=== PATIENT | female | born 2000 | race Caucasian/White ===

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

== ENCOUNTER 2021-07-14 08:06 | Emergency (ER) | payer OTHER ==
--- NOTE | 2021-07-14 08:13 | ERPHSYRPT ---
- History of Present Illness Time Seen by Provider: 07/14/21 08:13 Historian: patient Exam Limitations: no limitations Physician History: This is a 20-year-old white female who has a history of ovarian cyst in the past and has undergone an ovarian cystectomy in the past and presents with generalized abdominal pain with greater amount of pain in bilateral upper quadrants and lower quadrants. Patient states that she started her menstrual period yesterday and the pain began suddenly this morning. She has history of chronic intermittent diarrhea. She also was nauseated this morning. She has not had any abnormal vaginal discharge although she is currently on her m enstrual period she does not have dysuria. She denies flank pain. Patient states that she has vaginal bleeding intermittently between her menstrual periods. 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 Patient denies shortness of breath. Patient states that the upper abdominal pain does go up into her chest bilaterally. She has not had a cough. She denies fever. Patient has a history of migraine headaches, bipolar disorder, depression, borderline personality disorder. Timing/Duration: today Activities at Onset: none Quality: aching Abdominal Pain Onset Location: RUQ, LUQ, RLQ, LLQ, generalized abdomen Pain Radiation: no radiation Severity of Pain-Max: moderate Severity of Pain-Current: mild (To moderate) Modifying Factors: Improves With: nothing Associated Symptoms: diarrhea, nausea Previous symptoms: same symptoms as today, no recent treatment Allergies/Adverse Reactions: duloxetine [From Cymbalta] Allergy (Severe, Verified 07/14/21 08:20) antipsychotic Allergy (Uncoded 08/23/19 15:23) Home Medications: Gabapentin [Neurontin] 100 mg PO DAILY 07/14/21 [History] Hx Tetanus, Diphtheria Vaccination/Date Given: Yes Hx Influenza Vaccination/Date Given: Yes Hx Pneumococcal Vaccination/Date Given: No Travel Risk - International Travel Have you traveled outside of the country in past 3 weeks: No - Coronavirus Screening Are you exhibiting any of the following symptoms?: No Close contact with a COVID-19 positive Pt in past 14-21 Days: No - Review of Systems Constitutional: No Symptoms Eyes: No Symptoms Ears, Nose, & Throat: No Symptoms Respiratory: No Symptoms Cardiac: No Symptoms Abdominal/Gastrointestinal: Abdominal Pain, Nausea, Diarrhea, No Vomiting, No Constipation Genitourinary Symptoms: No Symptoms Musculoskeletal: No Symptoms Skin: No Symptoms Neurological: No Symptoms Psychological: No Symptoms - Past Medical History Pertinent Past Medical History: Yes Neurological History: Migraines ENT History: No Pertinent History Cardiac History: No Pertinent History Respiratory History: No Pertinent History Endocrine Medical History: No Pertinent History Musculoskeletal History: No Pertinent History GI Medical History: No Pertinent History History: No Pertinent History Psycho-Social History: Bipolar, Depression, Other Female Reproductive Disorders: No Pertinent History Other Medical History: borderline personality - Past Surgical History Past Surgical History: No Neuro Surgical History: No Pertinent History Cardiac: No Pertinent History Respiratory: No Pertinent History Gastrointestinal: No Pertinent History Genitourinary: No Pertinent History Musculoskeletal: No Pertinent History Female Surgical History: No Pertinent History - Social History Smoking Status: Never smoker Exposure to second hand smoke: Yes Drug Use: none Patient Lives Alone: No - Nursing Vital Signs Nursing Vital Signs: Initial Vital Signs Temperature 97.8 F 07/14/21 08:08 Pulse Rate 91 H 07/14/21 08:08 Respiratory Rate 20 07/14/21 08:08 Blood Pressure 130/70 07/14/21 08:08 O2 Sat by Pulse Oximetry 99 07/14/21 08:08 Pain Scale Pain Intensity 7 - Physical Exam General Appearance: no apparent distress, alert, anxiety Eye Exam: PERRL/EOMI, eyes nml inspection Ears, Nose, Throat Exam: normal ENT inspection, moist mucous membranes Neck Exam: normal inspection, non-tender, supple, full range of motion Respiratory Exam: normal breath sounds, lungs clear, airway intact, No chest tenderness, No respiratory distress Cardiovascular Exam: regular rate/rhythm, normal heart sounds, normal peripheral pulses Gastrointestinal/Abdomen Exam: soft, normal bowel sounds, tenderness (Mild generalized), guarding (Mild bilateral upper quadrants), No pulsatile mass Pelvic Exam: not done Rectal Exam: not done Back Exam: normal inspection, normal range of motion, No CVA tenderness, No vertebral tenderness Extremity Exam: normal inspection Neurologic Exam: alert, oriented x 3, cooperative, risk intern II-XII nml as tested, normal mood/affect, nml cerebellar function, nml station & gait, sensation nml Skin Exam: normal color, warm, dry Lymphatic Exam: No adenopathy SpO2 Interpretation: normal O2 Delivery: Room Air - Course Nursing assessment & vital signs reviewed: Yes EKG Interpreted by Me: RATE (92), Sinus Rhythm, NORMAL AXIS, NORMAL INTERVALS, NORMAL QRS, NORMAL ST-T, Other (No acute ischemic changes on today's EKG.) Ordered Tests: Active Orders 24 hr Category Date Time Status EKG-ER Only STAT Care 07/14/21 08:20 Active IV Insertion STAT Care 07/14/21 08:20 Active ABDOMEN AND PELVIS W/0 CONTRAS [CT] Stat Exams 07/14/21 08:20 Completed AMYLASE Stat Lab 07/14/21 08:25 Completed CBC W DIFF Stat Lab 07/14/21 08:25 Completed CMP Stat Lab 07/14/21 08:25 Completed HCG,QUALITATIVE URINE Stat Lab 07/14/21 08:27 Completed LIPASE Stat Lab 07/14/21 08:25 Completed Lactic Acid Stat Lab 07/14/21 08:25 Completed UA W/RFX UR CULTURE Stat Lab 07/14/21 08:27 Completed Medication Summary Generic Name Dose Route Start Last Admin Trade Name Freq PRN Reason Stop Dose Admin Ceftriaxone Sodium/Dextrose 1 g in 50 mls @ 100 mls/hr 07/14/21 08:50 07/14/21 09:07 Rocephin 1 Gm-D5w 50 Ml Bag IV 07/14/21 09:19 100 mls/hr STAT STA 100 mls/hr Administration Discontinued Medications Generic Name Dose Route Start Last Admin Trade Name Freq PRN Reason Stop Dose Admin Ceftriaxone Sodium/Dextrose Confirm 07/14/21 09:06 Rocephin 1 Gm-D5w 50 Ml Bag Administered 07/14/21 09:07 Dose 1 g in 50 mls @ ud IV .STK-MED ONE Ondansetron HCl 4 mg 07/14/21 08:20 07/14/21 09:07 Ondansetron Hcl 4 Mg/2 Ml Vial IV 07/14/21 08:21 4 mg STAT ONE Administration Ondansetron HCl Confirm 07/14/21 09:06 Ondansetron Hcl 4 Mg/2 Ml Vial Administered 07/14/21 09:07 Dose 4 mg .ROUTE .STK-MED ONE Lab/Rad Data: Laboratory Result Diagrams 07/14/21 08:25 07/14/21 08:25 Laboratory Results 07/14/21 07/14/21 07/14/21 Range/Units 08:27 08:27 08:25 WBC (4.0-10.5) K/mm3 RBC (4.1-5.4) M/mm3 Hgb (12.0-16.0) gm/dl Hct (35-47) % MCV (78-100) fl MCH (26-32) pg MCHC (32-36) g/dl RDW (11.5-14.0) % Plt Count (150-450) K/mm3 MPV (7.5-11.0) fl Gran % (36.0-66.0) % Eos # (Auto) (0-0.5) Absolute Lymphs (auto) (1.0-4.6) Absolute Monos (auto) (0.0-1.3) Lymphocytes % (24.0-44.0) % Monocytes % (0.0-12.0) % Eosinophils % (0.00-5.0) % Basophils % (0.0-0.4) % Absolute Granulocytes (1.4-6.9) Basophils # (0-0.4) Sodium 139 (137-145) mmol/L Potassium 4.1 (3.5-5.1) mmol/L Chloride 103 (98-107) mmol/L Carbon Dioxide 27 (22-30) mmol/L Anion Gap 14.3 (5-15) MEQ/L BUN 10 (7-17) mg/dL Creatinine 0.67 (0.52-1.04) mg/dL Estimated GFR > 60.0 ML/MIN Glucose 93 (74-106) mg/dL Lactic Acid (0.4-2.0) Calcium 10.3 H (8.4-10.2) mg/dL Total Bilirubin 0.40 (0.2-1.3) mg/dL AST 17 (14-36) U/L ALT 14 (0-35) U/L Alkaline Phosphatase 75 (38-126) U/L Serum Total Protein 7.5 (6.3-8.2) g/dL Albumin 4.6 (3.5-5.0) g/dL Amylase 55 (30-110) U/L Lipase 67 (23-300) U/L Urine Color YELLOW (YELLOW) Urine Appearance SLIGHTLY CLOUDY (CLEAR) Urine pH 6.0 (5-6) Ur Specific [place] 1.016 (1.005-1.025) Urine Protein NEGATIVE (Negative) Urine Ketones NEGATIVE (NEGATIVE) Urine Blood LARGE (0-5) Zain/ul Urine Nitrite NEGATIVE (NEGATIVE) Urine Bilirubin NEGATIVE (NEGATIVE) Urine Urobilinogen NEGATIVE (0-1) mg/dL Ur Leukocyte Esterase TRACE (NEGATIVE) Urine WBC (Auto) 11-15 (0-5) /HPF Urine RBC (Auto) >101 (0-2) /HPF U Epithel Cells (Auto) RARE (FEW) /HPF Urine Bacteria (Auto) NONE (NEGATIVE) /HPF Urine Mucus (Auto) SLIGHT (NEGATIVE) /HPF Urine Culture Reflexed NO (NO) Urine Glucose NEGATIVE (NEGATIVE) mg/dL Urine HCG, Qual NEGATIVE (Negative) 07/14/21 07/14/21 Range/Units 08:25 08:25 WBC 5.3 (4.0-10.5) K/mm3 RBC 4.68 (4.1-5.4) M/mm3 Hgb 14.3 (12.0-16.0) gm/dl Hct 42.6 (35-47) % MCV 91.0 (78-100) fl MCH 30.6 (26-32) pg MCHC 33.6 (32-36) g/dl RDW 12.1 (11.5-14.0) % Plt Count 337 (150-450) K/mm3 MPV 9.8 (7.5-11.0) fl Gran % 52.2 (36.0-66.0) % Eos # (Auto) 0.08 (0-0.5) Absolute Lymphs (auto) 1.86 (1.0-4.6) Absolute Monos (auto) 0.53 (0.0-1.3) Lymphocytes % 35.4 (24.0-44.0) % Monocytes % 10.1 (0.0-12.0) % Eosinophils % 1.5 (0.00-5.0) % Basophils % 0.8 (0.0-0.4) % Absolute Granulocytes 2.75 (1.4-6.9) Basophils # 0.04 (0-0.4) Sodium (137-145) mmol/L Potassium (3.5-5.1) mmol/L Chloride (98-107) mmol/L Carbon Dioxide (22-30) mmol/L Anion Gap (5-15) MEQ/L BUN (7-17) mg/dL Creatinine (0.52-1.04) mg/dL Estimated GFR ML/MIN Glucose (74-106) mg/dL Lactic Acid 0.9 (0.4-2.0) Calcium (8.4-10.2) mg/dL Total Bilirubin (0.2-1.3) mg/dL AST (14-36) U/L ALT (0-35) U/L Alkaline Phosphatase (38-126) U/L Serum Total Protein (6.3-8.2) g/dL Albumin (3.5-5.0) g/dL Amylase (30-110) U/L Lipase (23-300) U/L Urine Color (YELLOW) Urine Appearance (CLEAR) Urine pH (5-6) Ur Specific [place] (1.005-1.025) Urine Protein (Negative) Urine Ketones (NEGATIVE) Urine Blood (0-5) Zain/ul Urine Nitrite (NEGATIVE) Urine Bilirubin (NEGATIVE) Urine Urobilinogen (0-1) mg/dL Ur Leukocyte Esterase (NEGATIVE) Urine WBC (Auto) (0-5) /HPF Urine RBC (Auto) (0-2) /HPF U Epithel Cells (Auto) (FEW) /HPF Urine Bacteria (Auto) (NEGATIVE) /HPF Urine Mucus (Auto) (NEGATIVE) /HPF Urine Culture Reflexed (NO) Urine Glucose (NEGATIVE) mg/dL Urine HCG, Qual (Negative) - Progress Progress: improved, pain not gone completely, re-examined Progress Note: 07/14/21 09:17 CAT scan of the abdomen and pelvis without contrast shows mild fecal stasis. There are no other acute intra-abdominal or intrapelvic findings. Counseled pt/family regarding: lab results, diagnosis, need for follow-up, rad results - Departure Departure Disposition: Home Clinical Impression: UTI (urinary tract infection) Condition: Stable Critical Care Time: No Referrals: APRIL GARCIA NP [Primary Care Provider] - Additional Instructions: Drink plenty of fluids. If not allergic to and no contraindications, use Tylenol and ibuprofen for pain control. Take your antibiotics as prescribed. 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 Prescriptions: Ciprofloxacin [Cipro 500 MG] 500 mg PO BID #14 tablet
[2021-07-14 08:45] LABS: Appearance SLIGHTLY CLOUDY (CLEAR); Bilirubin NEGATIVE (NEGATIVE); Blood LARGE Ery/ul (0-5); Epithelial Cells RARE /HPF (FEW); Glucose NEGATIVE (NEGATIVE); Ketones NEGATIVE (NEGATIVE); Leukocyte Esterase TRACE (NEGATIVE); Mucus SLIGHT /HPF (NEGATIVE); Nitrite NEGATIVE (NEGATIVE); Protein,Urine Dip NEGATIVE (Negative); Specific Gravity 1.016 (1.005-1.025); Urobilinogen NEGATIVE mg/dL (0-1)
[2021-07-14 08:46] LABS: RBC >101 /HPF (0-2)
[2021-07-14 08:48] LABS: Absolute Neutrophil Ct (ANC) 2.75 (1.4-6.9); BASOPHIL % 0.8 % (0.0-0.4); Basophil (Absolute #) 0.04 (0-0.4); Eosinophil % 1.5 % (0.00-5.0); Eosinophil (Absolute #) 0.08 (0-0.5); Hematocrit 42.6 % (35-47); Hemoglobin 14.3 gm/dl (12.0-16.0); Lymphocyte (Absolute #) 1.86 (1.0-4.6); Lymphocytes % 35.4 % (24.0-44.0); Mean Corpuscular Hemoglobin 30.6 pg (26-32); Mean Corpuscular Hgb Concent. 33.6 g/dl (32-36); Mean Platelet Volume 9.8 fl (7.5-11.0); Monocyte (Absolute #) 0.53 (0.0-1.3); Monocytes % 10.1 % (0.0-12.0); Neutrophil % 52.2 % (36.0-66.0); Platelet Count 337 K/mm3 (150-450); Red Blood Count 4.68 M/mm3 (4.1-5.4); Red Cell Distribution Width 12.1 % (11.5-14.0); White Blood Count 5.3 K/mm3 (4.0-10.5)
[2021-07-14 08:49] LABS: ALBUMIN 4.6 g/dL (3.5-5.0); ALKALINE PHOSPHATASE 75 U/L (38-126); AMYLASE 55 U/L (30-110); ANION GAP 14.3 MEQ/L (5-15); BLOOD UREA NITROGEN 10 mg/dL (7-17); CHLORIDE 103 mmol/L (98-107); Calcium 10.3 mg/dL (8.4-10.2); Carbon Dioxide 27 mmol/L (22-30); Creatinine 1 0.67 mg/dL (0.52-1.04); EST GLOMERULAR FILTRATION RATE > 60.0 ML/MIN; Glucose 93 mg/dL (74-106); LIPASE 67 U/L (23-300); Potassium 4.1 mmol/L (3.5-5.1); SGOT/AST 17 U/L (14-36); SGPT/ALT 14 U/L (0-35); SODIUM 139 mmol/L (137-145); Total Protein 7.5 g/dL (6.3-8.2)
[2021-07-14] MEDS ORDERED: ROCEPHIN 1 Gm-D5w 50 ml Bag** 1 G/50 ML IVPB IV ONE (09:06)
[2021-07-14] MEDS ORDERED: Zofran 4 MG/2 ML VIAL ONE (09:06)
[2021-07-14] MEDS: ROCEPHIN 1 Gm-D5w 50 ml Bag** 1 G/50 ML IVPB IV STA (09:07)
[2021-07-14] MEDS: Zofran 4 MG/2 ML VIAL IV ONE (09:07)
--- NOTE | 2021-07-14 09:14 | XRAY ---
Indication: Abdomen pain and "hardness." Multiple contiguous axial images obtained through the abdomen and pelvis without contrast. Comparison: August 23, 2019. Lung bases remain clear. Heart not enlarged. Noncontrasted stomach and bowel loops are nonobstructed. Normal appendix. There remains mild diffuse scattered colonic fecal debris throughout. No free fluid/air. Gallbladder partially contracted without gallstones. Remaining liver, gallbladder, pancreas, spleen, adrenal glands, kidneys, ureters, bladder, and aorta are unremarkable for noncontrast exam. Osseous structures intact. No ventral or inguinal hernias. Impression: 1. Again mild fecal stasis. 2. Remaining CT abdomen/pelvis without contrast exam is again negative.
[2021-07-14 09:40] VITALS: BP 111/76; PULSE 90; O2SAT 97
== END 2021-07-14 09:48 | disposition home or self-care (01) ==
LOC: ED 08:06
DX: N39.0 Urinary tract infection, site not specified (principal)
CPT/HCPCS: 36000; 36415; 74176; 80053; 81001; 82150; 83605; 83690; 84703; 85025; 93005; 96374; 99284; J0696; J2405

== ENCOUNTER 2021-07-21 14:03 | Emergency (ER) | payer OTHER ==
[2021-07-21 14:19] VITALS: O2SAT 98
--- NOTE | 2021-07-21 16:27 | XRAY ---
Indication: Head injury with steering wheel. Multiple contiguous axial images obtained through the head without contrast. Comparison: None Normal appearing brain parenchyma, ventricles, and bony calvarium. Visualized paranasal sinuses and mastoid air cells are clear. Impression: Normal CT head without contrast exam.
[2021-07-21] MEDS ORDERED: TYLENOL 325 MG PO ONE (16:28)
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
[2021-07-21] MEDS ORDERED: TYLENOL 325 MG ONE (16:37)
[2021-07-21 16:42] VITALS: BP 111/63; PULSE 84
== END 2021-07-21 16:46 | disposition home or self-care (01) ==
LOC: ED 14:03
DX: F07.81 Postconcussional syndrome (principal); V47.5XXA Car driver injured in collision with fixed or stationary object in traffic accident, initial encounter
CPT/HCPCS: 70450; 99283; A9270-GY

== ENCOUNTER 2022-11-06 07:02 | Emergency (ER) | payer OTHER ==
[2022-11-06] MEDS ORDERED: Zofran 4 MG/2 ML VIAL IV ONE (07:20)
[2022-11-06] MEDS ORDERED: Sodium Chloride 0.9% 1000 ML 1,000 ML IV STA (07:20)
--- NOTE | 2022-11-06 07:45 | ERPHSYRPT ---
- History of Present Illness Historian: patient Exam Limitations: no limitations Patient Subjective Stated Complaint: Pt c/o of vomiting for the past 2 days and diarrhea that began last night and pain in the RLQ Triage Nursing Assessment: Pt brought self to the ER, vitals wnl, rates abdominal pain as 9/10, doesn't appear to be in significant pain, abdoment tender with palpatation to the RLQ, can hear bowel sounds across the room, N&V, last vomited at 1130 last night and she ate a light meal then Physician History: 21 yo wf w R sided abdominal pain x 2 days. Pain is sharp and 9/10 on scale. Pain started before she developed N/V/D. Melena/h ematochezia/hematemesis/dysuria/hematuria/vag bleeding/vag discharge are all denied. Pt states that she has had a fever. Timing/Duration: other (2 days) Activities at Onset: rest Quality: sharpness Abdominal Pain Onset Location: other (R sided abdominal pain) Severity of Pain-Max: severe Severity of Pain-Current: severe Modifying Factors: Improves With: nothing Associated Symptoms: denies symptoms Previous symptoms: no prior history Allergies/Adverse Reactions: duloxetine [From Cymbalta] Allergy (Severe, Verified 11/06/22 07:27) antipsychotic Allergy (Uncoded 11/06/22 07:27) Home Medications: Topiramate [Topamax] 1 ea PO DAILY 07/21/21 [History] Hx Tetanus, Diphtheria Vaccination/Date Given: Yes Hx Influenza Vaccination/Date Given: No Hx Pneumococcal Vaccination/Date Given: No Travel Risk - International Travel Have you traveled outside of the country in past 3 weeks: No - Coronavirus Screening Are you exhibiting any of the following symptoms?: Yes Symptoms: Fever, Vomiting/Diarrhea, Headaches/Body Aches/Fatigue Close contact with a COVID-19 positive Pt in past 14-21 Days: No - Vaccine Status Have you recieved a Covid-19 vaccination: Yes 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: [employer] - Review of Systems Constitutional: No Symptoms, Fever Eyes: No Symptoms Ears, Nose, & Throat: No Symptoms Respiratory: No Symptoms Cardiac: No Symptoms Abdominal/Gastrointestinal: No Symptoms Genitourinary Symptoms: No Symptoms Musculoskeletal: No Symptoms Skin: No Symptoms Neurological: No Symptoms Psychological: No Symptoms Endocrine: No Symptoms Hematologic/Lymphatic: No Symptoms Immunological/Allergic: No Symptoms - Past Medical History Pertinent Past Medical History: Yes Neurological History: Migraines ENT History: No Pertinent History Cardiac History: No Pertinent History Respiratory History: No Pertinent History Endocrine Medical History: No Pertinent History Musculoskeletal History: No Pertinent History GI Medical History: No Pertinent History History: No Pertinent History Psycho-Social History: Anxiety, Bipolar, Depression Female Reproductive Disorders: No Pertinent History Other Medical History: borderline personality - Past Surgical History Past Surgical History: Yes Neuro Surgical History: No Pertinent History Cardiac: No Pertinent History Respiratory: No Pertinent History Gastrointestinal: No Pertinent History Genitourinary: No Pertinent History Musculoskeletal: No Pertinent History Female Surgical History: No Pertinent History Other Surgical History: cyst removed, test for painful bladder syndrome that required anesthesia - Social History Smoking Status: Current every day smoker Exposure to second hand smoke: Yes Drug Use: none Patient Lives Alone: No Significant Family History: no pertinent family hx - Female History Hx Last Menstrual Period: 10/23/2022 Hx Now: No - Nursing Vital Signs Nursing Vital Signs: Initial Vital Signs Temperature 98.1 F 11/06/22 07:08 Pulse Rate 97 H 11/06/22 07:08 Blood Pressure 111/75 11/06/22 07:08 O2 Sat by Pulse Oximetry 97 11/06/22 07:08 Pain Scale Pain Intensity 7 - Physical Exam General Appearance: no apparent distress Eye Exam: PERRL/EOMI, eyes nml inspection Ears, Nose, Throat Exam: normal ENT inspection, TMs normal, pharynx normal, moist mucous membranes Neck Exam: normal inspection, non-tender, supple, full range of motion, No meningismus, No mass, No Brudzinski, No Kernig's Respiratory Exam: normal breath sounds, lungs clear, airway intact Cardiovascular Exam: regular rate/rhythm, normal heart sounds, capillary refill <2 sec, No murmur Gastrointestinal/Abdomen Exam: soft, normal bowel sounds, tenderness (TTP RLQ>RLQ moderately/No guarding or rebound) Back Exam: normal inspection, normal range of motion, No CVA tenderness, No vertebral tenderness Extremity Exam: normal inspection, normal range of motion Neurologic Exam: alert, oriented x 3, 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, 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, normal mood/affect, nml cerebellar function, nml station & gait, sensation nml Skin Exam: normal color, warm, dry, No rash Lymphatic Exam: adenopathy SpO2 Interpretation: normal SpO2: 97 O2 Delivery: Room Air - Course Nursing assessment & vital signs reviewed: Yes - CT Exams Abdomen/Pelvis CT Interpretation: Tele-radiologist Report (No evidence of appendicitis/Mild L adnexal inflammatory changes) Ordered Tests: Active Orders 24 hr Category Date Time Status IV Insertion STAT Care 11/06/22 07:20 Completed ABDOMEN AND PELVIS W CONTRAST [CT] Stat Exams 11/06/22 09:10 Taken AMYLASE Stat Lab 11/06/22 08:01 Completed CBC W DIFF Stat Lab 11/06/22 07:50 Completed CMP Stat Lab 11/06/22 08:01 Completed CULTURE,URINE Stat Lab 11/06/22 08:01 Received HCG QUALITATIVE,SERUM Stat Lab 11/06/22 08:01 Completed LIPASE Stat Lab 11/06/22 08:01 Completed UA W/RFX UR CULTURE Stat Lab 11/06/22 08:01 Completed Medication Summary Discontinued Medications Generic Name Dose Route Start Last Admin Trade Name Freq PRN Reason Stop Dose Admin Sodium Chloride 1,000 mls @ 999 mls/hr 11/06/22 07:20 11/06/22 09:04 Sodium Chloride 0.9% 1000 Ml IV 11/06/22 08:20 Infused .Q1H1M STA Infusion Sodium Chloride Confirm 11/06/22 07:54 Sodium Chloride 0.9% 1000 Ml Administered 11/06/22 07:55 Dose 1,000 mls @ ud .ROUTE .STK-MED ONE Ketorolac Tromethamine 15 mg 11/06/22 07:56 11/06/22 08:06 Ketorolac Tromethamine 30 Mg/Ml Inj IV 11/06/22 07:57 15 mg STAT ONE Administration Ketorolac Tromethamine Confirm 11/06/22 08:05 Ketorolac Tromethamine 30 Mg/Ml Inj Administered 11/06/22 08:06 Dose 30 mg .ROUTE .STK-MED ONE Ondansetron HCl 4 mg 11/06/22 07:20 11/06/22 07:55 Ondansetron Hcl 4 Mg/2 Ml Vial IV 11/06/22 07:21 4 mg STAT ONE Administration Ondansetron HCl Confirm 11/06/22 07:54 Ondansetron Hcl 4 Mg/2 Ml Vial Administered 11/06/22 07:55 Dose 4 mg .ROUTE .STK-MED ONE Lab/Rad Data: Laboratory Result Diagrams 11/06/22 07:50 11/06/22 08:01 Laboratory Results 11/06/22 11/06/22 11/06/22 Range/Units 08:12 08:01 08:01 WBC (4.0-10.5) x10^3/uL RBC (4.1-5.4) x10^6/uL Hgb (12.0-16.0) g/dL Hct (35-47) % MCV (78-100) fL MCH (26-32) pg MCHC (32-36) g/dL RDW (11.5-14.0) % Plt Count (150-450) x10^3/uL MPV (7.5-11.0) fL Gran % (36.0-66.0) % Immature Gran % (Auto) (0.00-0.4) % Nucleat RBC Rel Count (0.00-0.1) % Eos # (Auto) (0-0.5) x10^3/uL Immature Gran # (Auto) (0.00-0.03) x10^3u/L Absolute Lymphs (auto) (1.0-4.6) x10^3/uL Absolute Monos (auto) (0.0-1.3) x10^3/uL Absolute Nucleated RBC (0.00-0.01) x10^3u/L Lymphocytes % (24.0-44.0) % Monocytes % (0.0-12.0) % Eosinophils % (0.00-5.0) % Basophils % (0.0-0.4) % Absolute Granulocytes (1.4-6.9) x10^3/uL Basophils # (0-0.4) x10^3/uL Sodium (137-145) mmol/L Potassium (3.5-5.1) mmol/L Chloride (98-107) mmol/L Carbon Dioxide (22-30) mmol/L Anion Gap (5-15) MEQ/L BUN (7-17) mg/dL Creatinine (0.52-1.04) mg/dL Estimated GFR ML/MIN Glucose (74-106) mg/dL Calcium (8.4-10.2) mg/dL Total Bilirubin (0.2-1.3) mg/dL AST (14-36) U/L ALT (0-35) U/L Alkaline Phosphatase (38-126) U/L Serum Total Protein (6.3-8.2) g/dL Albumin (3.5-5.0) g/dL Amylase (30-110) U/L Lipase (23-300) U/L Serum , Qual NEGATIVE (Negative) Urine Color Yellow (Yellow) Urine Appearance Clear (Clear) Urine pH 5.5 (4.6-8.0) Ur Specific [place] >=1.030 A (1.005-1.030) Urine Protein Trace A (Negative) Urine Glucose (UA) Negative (Negative) mg/dL Urine Ketones Trace A (Negative) Urine Blood Small A (Negative) Urine Nitrite Negative (Negative) Urine Bilirubin Negative (Negative) Urine Urobilinogen 1.0 A (0.2) mg/dL Ur Leukocyte Esterase Negative (Negative) U Hyaline Cast (Auto) NONE SEEN (0-2) /LPF Urine Microscopic RBC 11-20 A (0-5) /HPF Urine Microscopic WBC 0-2 (0-5) /HPF Ur Epithelial Cells Few (None Seen) /HPF Urine Bacteria None Seen (None Seen) /HPF Urine Culture Reflexed YES (NO) Influenza Type A Ag NEGATIVE (NEGATIVE) Influenza Type B Ag NEGATIVE (NEGATIVE) RSV (PCR) NEGATIVE (Negative) SARS-CoV-2 (PCR) NEGATIVE (NEGATIVE) 11/06/22 11/06/22 Range/Units 08:01 07:50 WBC 5.1 (4.0-10.5) x10^3/uL RBC 4.55 (4.1-5.4) x10^6/uL Hgb 13.8 (12.0-16.0) g/dL Hct 41.3 (35-47) % MCV 90.8 (78-100) fL MCH 30.3 (26-32) pg MCHC 33.4 (32-36) g/dL RDW 11.4 L (11.5-14.0) % Plt Count 288 (150-450) x10^3/uL MPV 9.7 (7.5-11.0) fL Gran % 65.4 (36.0-66.0) % Immature Gran % (Auto) 0.2 (0.00-0.4) % Nucleat RBC Rel Count 0.0 (0.00-0.1) % Eos # (Auto) 0.05 (0-0.5) x10^3/uL Immature Gran # (Auto) 0.01 (0.00-0.03) x10^3u/L Absolute Lymphs (auto) 0.84 L (1.0-4.6) x10^3/uL Absolute Monos (auto) 0.84 (0.0-1.3) x10^3/uL Absolute Nucleated RBC 0.00 (0.00-0.01) x10^3u/L Lymphocytes % 16.4 L (24.0-44.0) % Monocytes % 16.4 H (0.0-12.0) % Eosinophils % 1.0 (0.00-5.0) % Basophils % 0.6 (0.0-0.4) % Absolute Granulocytes 3.34 (1.4-6.9) x10^3/uL Basophils # 0.03 (0-0.4) x10^3/uL Sodium 138 (137-145) mmol/L Potassium 4.1 (3.5-5.1) mmol/L Chloride 108 H (98-107) mmol/L Carbon Dioxide 18 L (22-30) mmol/L Anion Gap 16.0 H (5-15) MEQ/L BUN 16 (7-17) mg/dL Creatinine 0.51 L (0.52-1.04) mg/dL Estimated GFR > 60.0 ML/MIN Glucose 95 (74-106) mg/dL Calcium 8.8 (8.4-10.2) mg/dL Total Bilirubin 0.40 (0.2-1.3) mg/dL AST 22 (14-36) U/L ALT 15 (0-35) U/L Alkaline Phosphatase 82 (38-126) U/L Serum Total Protein 7.0 (6.3-8.2) g/dL Albumin 4.0 (3.5-5.0) g/dL Amylase 60 (30-110) U/L Lipase 54 (23-300) U/L Serum , Qual (Negative) Urine Color (Yellow) Urine Appearance (Clear) Urine pH (4.6-8.0) Ur Specific [place] (1.005-1.030) Urine Protein (Negative) Urine Glucose (UA) (Negative) mg/dL Urine Ketones (Negative) Urine Blood (Negative) Urine Nitrite (Negative) Urine Bilirubin (Negative) Urine Urobilinogen (0.2) mg/dL Ur Leukocyte Esterase (Negative) U Hyaline Cast (Auto) (0-2) /LPF Urine Microscopic RBC (0-5) /HPF Urine Microscopic WBC (0-5) /HPF Ur Epithelial Cells (None Seen) /HPF Urine Bacteria (None Seen) /HPF Urine Culture Reflexed (NO) Influenza Type A Ag (NEGATIVE) Influenza Type B Ag (NEGATIVE) RSV (PCR) (Negative) SARS-CoV-2 (PCR) (NEGATIVE) - Progress Progress: improved Progress Note: 11/06/22 07:45 Nursing note and vital signs reviewed No housing or food insecurities noted Pt lives w her parents and works at [employer] 11/06/22 10:43 1L NS bolus/4mg IV Zofran/15mg IV Toradol 11/06/22 10:[address] results reviewed and shared w pt. Pt advised to return to ER for increasing pain or temperature greater than 100.5 11/06/22 11:44 Pt requested a work excuse for today and granted Counseled pt/family regarding: lab results, diagnosis, need for follow-up, rad results - Departure Departure Disposition: Home Clinical Impression: Abdominal pain Condition: Stable Critical Care Time: No Referrals: SONYA VITAL [Primary Care Provider] - Follow up/PCP as directed Instructions: Severe Abdominal Pain, Adult (DC) Additional Instructions: Fluids, advance diet slowly Return to ER for increasing pain or temperature greater than 100.5 Forms: Work/School Release Form
[2022-11-06] MEDS ORDERED: Sodium Chloride 0.9% 1000 ML 1,000 ML ONE (07:54)
[2022-11-06] MEDS ORDERED: Zofran 4 MG/2 ML VIAL ONE (07:54)
[2022-11-06 07:56] LABS: Absolute Neutrophil Ct (ANC) 3.34 x10^3/uL (1.4-6.9); BASOPHIL % 0.6 % (0.0-0.4); Basophil (Absolute #) 0.03 x10^3/uL (0-0.4); Eosinophil (Absolute #) 0.05 x10^3/uL (0-0.5); Hematocrit 41.3 % (35-47); Hemoglobin 13.8 g/dL (12.0-16.0); IMMATURE GRAN # 0.01 x10^3u/L (0.00-0.03); IMMATURE GRAN % 0.2 % (0.00-0.4); Lymphocyte (Absolute #) 0.84 x10^3/uL (1.0-4.6); Lymphocytes % 16.4 % (24.0-44.0); Mean Cell Volume 90.8 fL (78-100); Mean Corpuscular Hemoglobin 30.3 pg (26-32); Mean Corpuscular Hgb Concent. 33.4 g/dL (32-36); Mean Platelet Volume 9.7 fL (7.5-11.0); Monocyte (Absolute #) 0.84 x10^3/uL (0.0-1.3); Monocytes % 16.4 % (0.0-12.0); Neutrophil % 65.4 % (36.0-66.0); Platelet Count 288 x10^3/uL (150-450); Red Blood Count 4.55 x10^6/uL (4.1-5.4); Red Cell Distribution Width 11.4 % (11.5-14.0); White Blood Count 5.1 x10^3/uL (4.0-10.5)
[2022-11-06] MEDS ORDERED: TORAdol 30 mg Injection IV ONE (07:56)
[2022-11-06] MEDS ORDERED: TORAdol 30 mg Injection ONE (08:05)
[2022-11-06 08:20] LABS: ALKALINE PHOSPHATASE 82 U/L (38-126); AMYLASE 60 U/L (30-110); BLOOD UREA NITROGEN 16 mg/dL (7-17); CHLORIDE 108 mmol/L (98-107); Calcium 8.8 mg/dL (8.4-10.2); Carbon Dioxide 18 mmol/L (22-30); Creatinine 1 0.51 mg/dL (0.52-1.04); EST GLOMERULAR FILTRATION RATE > 60.0 ML/MIN; Glucose 95 mg/dL (74-106); LIPASE 54 U/L (23-300); Potassium 4.1 mmol/L (3.5-5.1); SGOT/AST 22 U/L (14-36); SGPT/ALT 15 U/L (0-35); SODIUM 138 mmol/L (137-145)
[2022-11-06 08:31] LABS: Appearance Clear (Clear); Bacteria None Seen /HPF (None Seen); Bilirubin Negative (Negative); Blood Small (Negative); Epithelial Cells Few /HPF (None Seen); Glucose, Urine Negative (Negative); Hyaline Casts NONE SEEN /LPF (0-2); Ketones Trace (Negative); Leukocyte Esterase Negative (Negative); Nitrite Negative (Negative); Ph 5.5 (4.6-8.0); Protein,Urine Dip Trace (Negative); Specific Gravity >=1.030 (1.005-1.030); WBC 0-2 /HPF (0-5)
[2022-11-06 08:32] LABS: ADD URINE CULTURE? YES (NO)
[2022-11-06 08:53] LABS: INFLUENZA A NEGATIVE (NEGATIVE); INFLUENZA B NEGATIVE (NEGATIVE); RESPIRATORY SYNCTIAL VIRUS NEGATIVE (Negative); SARS-CoV-2 Xpert Express NEGATIVE (NEGATIVE)
[2022-11-06 10:07] VITALS: BP 103/66
[2022-11-06 10:53] VITALS: PULSE 86
[2022-11-06 11:46] VITALS: O2SAT 97
--- NOTE | 2022-11-06 19:14 | XRAY ---
Indication: Right lower quadrant pain. Multiple contiguous axial images obtained through the abdomen and pelvis using 80 cc Isovue 370 contrast. Comparison: July 14, 2021 Lung bases again clear. Heart not enlarged. Noncontrasted stomach and bowel loops appear nonobstructed. Appendix not clearly visualized. No free fluid/air. Remaining liver, gallbladder, pancreas, spleen, general glands, kidneys, ureters, bladder, uterus, and aorta are unremarkable. No pathologic retroperitoneal lymphadenopathy. Osseous structures intact. Impression: Negative CT abdomen/pelvis with contrast exam. Comment: Preliminary interpretation made by [facility]. No critical discrepancy.
== END 2022-11-06 10:59 | disposition home or self-care (01) ==
LOC: ED 07:02
DX: R10.31 Right lower quadrant pain (principal); R10.11 Right upper quadrant pain; R11.2 Nausea with vomiting, unspecified; R19.7 Diarrhea, unspecified; R50.9 Fever, unspecified; Z79.899 Other long term (current) drug therapy; Z72.0 Tobacco use
CPT/HCPCS: 0241U; 36415; 74177; 80053; 81001; 82150; 83690; 84703; 85025; 87086; 96360; 96374; 96375; 99284; J1885; J2405

== ENCOUNTER 2023-02-20 15:14 | Emergency (ER) | payer OTHER ==
--- NOTE | 2023-02-20 15:17 | ERPHSYRPT ---
- History of Present Illness Time Seen by Provider: 02/20/23 15:17 Historian: patient Exam Limitations: no limitations Physician History: This is a 22-year-old white female who presents with chest pain that began 30 minutes prior to arrival into the emergency department. Patient states that it is central and substernal without radiation. It is described as an ache. She also has similar discomfort in the epigastric area. She has never had anything like this before. When asked if she has been diagnosed in the past with heart disease she stated yes but she is never seen a board stacker. She is not on any medication for cardiac issues. Patient does not have a cough. He has no abdominal pain. She has not had a fever. Patient has a history of ovarian cysts, chronic intermittent diarrhea, migraine headaches, bipolar disorder, depression and borderline personality disorder. Timing/Duration: today Activities at Onset: none Quality: aching Location: substernal, central Chest Pain Radiation: no radiation Severity of Pain-Max: mild Severity of Pain-Current: mild Modifying Factors: Improves With: nothing Associated Symptoms: denies symptoms Prior Chest Pain/Cardiac Workup: no prior chest pain, no prior cardiac workup Nitro Today/Relief: no nitro taken today Aspirin Treatment Today: no aspirin today Allergies/Adverse Reactions: duloxetine [From Cymbalta] Allergy (Severe, Verified 02/20/23 15:15) antipsychotic Allergy (Uncoded 02/20/23 15:15) Home Medications: Topiramate [Topamax] 1 ea PO DAILY 07/21/21 [History] hydrOXYzine pamoate [Vistaril] 1 tab PO QID PRN 02/20/23 [History] lamoTRIgine [Lamotrigine] 1 tab PO HS 02/20/23 [History] Hx Tetanus, Diphtheria Vaccination/Date Given: Yes Hx Influenza Vaccination/Date Given: No Hx Pneumococcal Vaccination/Date Given: No Travel Risk - International Travel Have you traveled outside of the country in past 3 weeks: No - Coronavirus Screening Are you exhibiting any of the following symptoms?: No Close contact with a COVID-19 positive Pt in past 14-21 Days: No - Vaccine Status Have you recieved a Covid-19 vaccination: Yes 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: [employer] - Review of Systems Constitutional: Night Sweats Eyes: No Symptoms Ears, Nose, & Throat: No Symptoms Respiratory: No Symptoms Cardiac: Chest Pain Abdominal/Gastrointestinal: No Symptoms Genitourinary Symptoms: No Symptoms Musculoskeletal: No Symptoms Skin: No Symptoms Neurological: No Symptoms Psychological: No Symptoms Endocrine: No Symptoms Hematologic/Lymphatic: No Symptoms Immunological/Allergic: No Symptoms All Other Systems: Reviewed and Negative - Past Medical History Pertinent Past Medical History: Yes Neurological History: Migraines ENT History: No Pertinent History Cardiac History: No Pertinent History Respiratory History: No Pertinent History Endocrine Medical History: No Pertinent History Musculoskeletal History: No Pertinent History GI Medical History: No Pertinent History History: No Pertinent History Psycho-Social History: Anxiety, Bipolar, Depression Female Reproductive Disorders: No Pertinent History Other Medical History: borderline personality - Past Surgical History Past Surgical History: Yes Neuro Surgical History: No Pertinent History Cardiac: No Pertinent History Respiratory: No Pertinent History Gastrointestinal: No Pertinent History Genitourinary: No Pertinent History Musculoskeletal: No Pertinent History Female Surgical History: No Pertinent History Other Surgical History: cyst removed, test for painful bladder syndrome that required anesthesia - Social History Smoking Status: Current every day smoker Exposure to second hand smoke: Yes Drug Use: none Patient Lives Alone: No Significant Family History: no pertinent family hx - Nursing Vital Signs Nursing Vital Signs: Initial Vital Signs Pulse Rate 90 02/20/23 15:14 Respiratory Rate 15 02/20/23 15:14 Blood Pressure 105/71 02/20/23 15:14 O2 Sat by Pulse Oximetry 99 02/20/23 15:14 Pain Scale Pain Intensity 8 - Physical Exam General Appearance: no apparent distress, alert, anxiety Eye Exam: PERRL/EOMI, eyes nml inspection Ears, Nose, Throat Exam: normal ENT inspection, moist mucous membranes Neck Exam: normal inspection, non-tender, supple, full range of motion Respiratory Exam: normal breath sounds, chest tenderness, lungs clear, airway intact, No respiratory distress Cardiovascular Exam: regular rate/rhythm, normal heart sounds, normal peripheral pulses Gastrointestinal/Abdomen Exam: soft, normal bowel sounds, tenderness (Mild epigastric) Pelvic Exam: not done Rectal Exam: not done Extremity Exam: normal inspection, normal range of motion, pelvis stable Neurologic Exam: alert, oriented x 3, 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, 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, normal mood/affect, nml cerebellar function, nml station & gait, sensation nml Skin Exam: normal color, warm, dry Lymphatic Exam: No adenopathy SpO2 Interpretation: normal O2 Delivery: Room Air - Course Nursing assessment & vital signs reviewed: Yes Ordered Tests: Active Orders 24 hr Category Date Time Status Patient Account Liaison STAT Care 02/20/23 15:41 Active EKG-ER Only STAT Care 02/20/23 15:41 Active Pulse Oximetry (ED) STAT Care 02/20/23 15:41 Active CBC W DIFF Stat Lab 02/20/23 15:50 Completed CMP Stat Lab 02/20/23 15:50 Completed TROPONIN Q4H Lab 02/20/23 15:50 Completed TROPONIN Q4H Lab 02/20/23 19:45 Ordered TROPONIN Q4H Lab 02/20/23 23:45 Ordered Medication Summary Discontinued Medications Generic Name Dose Route Start Last Admin Trade Name Freq PRN Reason Stop Dose Admin Aspirin 324 mg 02/20/23 15:41 02/20/23 15:45 Aspirin 81 Mg Tab.Chew PO 02/20/23 15:42 324 mg STAT ONE Administration Aspirin Confirm 02/20/23 15:44 Aspirin 81 Mg Tab.Chew Administered 02/20/23 15:45 Dose 324 mg .ROUTE .STCoverity-MED ONE Lab/Rad Data: Laboratory Result Diagrams 02/20/23 15:50 02/20/23 15:50 Laboratory Results 02/20/23 02/20/23 02/20/23 Range/Units 15:50 15:50 15:50 WBC 8.6 (4.0-10.5) x10^3/uL RBC 4.82 (4.1-5.4) x10^6/uL Hgb 14.4 (12.0-16.0) g/dL Hct 43.3 (35-47) % MCV 89.8 (78-100) fL MCH 29.9 (26-32) pg MCHC 33.3 (32-36) g/dL RDW 11.6 (11.5-14.0) % Plt Count 335 (150-450) x10^3/uL MPV 9.5 (7.5-11.0) fL Gran % 68.3 H (36.0-66.0) % Immature Gran % (Auto) 0.2 (0.00-0.4) % Nucleat RBC Rel Count 0.0 (0.00-0.1) % Eos # (Auto) 0.06 (0-0.5) x10^3/uL Immature Gran # (Auto) 0.02 (0.00-0.03) x10^3u/L Absolute Lymphs (auto) 1.98 (1.0-4.6) x10^3/uL Absolute Monos (auto) 0.61 (0.0-1.3) x10^3/uL Absolute Nucleated RBC 0.00 (0.00-0.01) x10^3u/L Lymphocytes % 23.1 L (24.0-44.0) % Monocytes % 7.1 (0.0-12.0) % Eosinophils % 0.7 (0.00-5.0) % Basophils % 0.6 (0.0-0.4) % Absolute Granulocytes 5.87 (1.4-6.9) x10^3/uL Basophils # 0.05 (0-0.4) x10^3/uL Sodium 138 (137-145) mmol/L Potassium 4.1 (3.5-5.1) mmol/L Chloride 103 (98-107) mmol/L Carbon Dioxide 24 (22-30) mmol/L Anion Gap 15.1 H (5-15) MEQ/L BUN 9 (7-17) mg/dL Creatinine 0.61 (0.52-1.04) mg/dL Estimated GFR > 60.0 ML/MIN Glucose 90 (74-106) mg/dL Calcium 9.1 (8.4-10.2) mg/dL Total Bilirubin 0.50 (0.2-1.3) mg/dL AST 20 (14-36) U/L ALT 16 (0-35) U/L Alkaline Phosphatase 78 (38-126) U/L Troponin I < 0.012 (0.000-0.034) ng/mL Serum Total Protein 7.5 (6.3-8.2) g/dL Albumin 4.3 (3.5-5.0) g/dL - Progress Progress: improved, re-examined Air Movement: good Progress Note: 02/20/23 16:43 Patient's medical issues 1 of moderate complexity. The level of complexity and the work-up performed is based on review of the patient's past medical history, review of the patient's medication list, review of the patient's drug allergy list, history of present illness and physical findings on examination. Work-up in this patient includes twelve-lead EKG, CBC, CMP and troponin level. I reviewed the results of this work-up. Patient does not have any acute or emergent medical issue. Patient was instructed to follow-up with her primary care provider for further evaluation and referral to board stacker if they feel it is indicated. Blood Culture(s) Obtained: No Antibiotics given: No Counseled pt/family regarding: lab results, diagnosis, need for follow-up Medical Desision Making - Diagnostic Testing Diagnostic test were ordered, analyzed, and reviewed by me: Yes - Risk of complications Minimal Risk: Minimal risk of morbidity - Departure Departure Disposition: Home Clinical Impression: Chest pain Condition: Stable Critical Care Time: No Referrals: SONYA VITAL [Primary Care Provider] - Follow up/PCP as directed Additional Instructions: Call your prescribing provider tomorrow, 02/21/2023, to make arrangements for further evaluation management including a referral to a board stacker if amanda cated.
[2023-02-20] MEDS ORDERED: BABY ASPIRIN 81 MG CHEW PO ONE (15:41)
[2023-02-20] MEDS ORDERED: BABY ASPIRIN 81 MG CHEW ONE (15:44)
[2023-02-20 15:58] LABS: Absolute Neutrophil Ct (ANC) 5.87 x10^3/uL (1.4-6.9); BASOPHIL % 0.6 % (0.0-0.4); Basophil (Absolute #) 0.05 x10^3/uL (0-0.4); Eosinophil % 0.7 % (0.00-5.0); Eosinophil (Absolute #) 0.06 x10^3/uL (0-0.5); Hematocrit 43.3 % (35-47); Hemoglobin 14.4 g/dL (12.0-16.0); IMMATURE GRAN # 0.02 x10^3u/L (0.00-0.03); IMMATURE GRAN % 0.2 % (0.00-0.4); Lymphocyte (Absolute #) 1.98 x10^3/uL (1.0-4.6); Lymphocytes % 23.1 % (24.0-44.0); Mean Cell Volume 89.8 fL (78-100); Mean Corpuscular Hemoglobin 29.9 pg (26-32); Mean Corpuscular Hgb Concent. 33.3 g/dL (32-36); Mean Platelet Volume 9.5 fL (7.5-11.0); Monocyte (Absolute #) 0.61 x10^3/uL (0.0-1.3); Monocytes % 7.1 % (0.0-12.0); Neutrophil % 68.3 % (36.0-66.0); Platelet Count 335 x10^3/uL (150-450); Red Blood Count 4.82 x10^6/uL (4.1-5.4); Red Cell Distribution Width 11.6 % (11.5-14.0); White Blood Count 8.6 x10^3/uL (4.0-10.5)
[2023-02-20 16:09] LABS: ALBUMIN 4.3 g/dL (3.5-5.0); ALKALINE PHOSPHATASE 78 U/L (38-126); ANION GAP 15.1 MEQ/L (5-15); BLOOD UREA NITROGEN 9 mg/dL (7-17); CHLORIDE 103 mmol/L (98-107); Calcium 9.1 mg/dL (8.4-10.2); Carbon Dioxide 24 mmol/L (22-30); Creatinine 1 0.61 mg/dL (0.52-1.04); EST GLOMERULAR FILTRATION RATE > 60.0 ML/MIN; Glucose 90 mg/dL (74-106); Potassium 4.1 mmol/L (3.5-5.1); SGOT/AST 20 U/L (14-36); SGPT/ALT 16 U/L (0-35); SODIUM 138 mmol/L (137-145); Total Protein 7.5 g/dL (6.3-8.2)
[2023-02-20 16:37] VITALS: BP 123/76
[2023-02-20 16:52] VITALS: PULSE 97; O2SAT 97
== END 2023-02-20 16:52 | disposition home or self-care (01) ==
LOC: ED 15:14
DX: R07.9 Chest pain, unspecified (principal); Z79.899 Other long term (current) drug therapy; Z72.0 Tobacco use
CPT/HCPCS: 36415; 80053; 84484; 85025; 93005; 93041; 94760; 99283; A9270-GY

== ENCOUNTER 2023-03-12 16:51 | Emergency (ER) | payer OTHER ==
--- NOTE | 2023-03-12 16:55 | ERPHSYRPT ---
- History of Present Illness Time Seen by Provider: 03/12/23 16:55 Source: patient Exam Limitations: no limitations Physician History: This is a 22-year-old white female patient has a history anxiety, bipolar disorder and borderline personality and presents with bilateral earaches and sinus pressure as well as nasal/sinus congestion that began yesterday. She has not had a fever. She denies cough. She has no chest pain. She has no shortness of breath. She has no abdominal pain. She has no known exposures to individuals with similar symptoms. Timing/Duration: yesterday Fever Severity: gone Fever Therapy CARGO MATE: none Associated Symptoms: No abdominal pain, No chest pain, No cough, No nausea/vomiting, No sore throat Allergies/Adverse Reactions: duloxetine [From Cymbalta] Allergy (Severe, Verified 02/20/23 15:15) antipsychotic Allergy (Uncoded 02/20/23 15:15) Hx Tetanus, Diphtheria Vaccination/Date Given: Yes Hx Influenza Vaccination/Date Given: No Hx Pneumococcal Vaccination/Date Given: No Travel Risk - International Travel Have you traveled outside of the country in past 3 weeks: No - Coronavirus Screening Are you exhibiting any of the following symptoms?: No Close contact with a COVID-19 positive Pt in past 14-21 Days: No - Vaccine Status Have you recieved a Covid-19 vaccination: Yes 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: [employer] - Review of Systems Constitutional: No Symptoms Eyes: No Symptoms Ears, Nose, & Throat: Ear Pain, Nose Congestion Respiratory: No Symptoms Cardiac: No Symptoms Abdominal/Gastrointestinal: No Symptoms Genitourinary Symptoms: No Symptoms Musculoskeletal: No Symptoms Skin: No Symptoms Neurological: No Symptoms Psychological: No Symptoms Endocrine: No Symptoms Hematologic/Lymphatic: No Symptoms Immunological/Allergic: No Symptoms All Other Systems: Reviewed and Negative - Past Medical History Pertinent Past Medical History: Yes Neurological History: Migraines ENT History: No Pertinent History Cardiac History: No Pertinent History Respiratory History: No Pertinent History Endocrine Medical History: No Pertinent History Musculoskeletal History: No Pertinent History GI Medical History: No Pertinent History History: No Pertinent History Psycho-Social History: Anxiety, Bipolar, Depression Female Reproductive Disorders: No Pertinent History Other Medical History: borderline personality - Past Surgical History Past Surgical History: Yes Neuro Surgical History: No Pertinent History Cardiac: No Pertinent History Respiratory: No Pertinent History Gastrointestinal: No Pertinent History Genitourinary: No Pertinent History Musculoskeletal: No Pertinent History Female Surgical History: No Pertinent History Other Surgical History: cyst removed, test for painful bladder syndrome that required anesthesia - Social History Smoking Status: Current every day smoker Exposure to second hand smoke: Yes Drug Use: none Patient Lives Alone: No Significant Family History: no pertinent family hx - Nursing Vital Signs Nursing Vital Signs: Initial Vital Signs Temperature 98.9 F 03/12/23 16:57 Pulse Rate 119 H 03/12/23 16:57 Respiratory Rate 20 03/12/23 16:57 Blood Pressure 124/82 03/12/23 16:57 O2 Sat by Pulse Oximetry 100 03/12/23 16:57 Pain Scale Pain Intensity 6 - Physical Exam General Appearance: no apparent distress, alert, anxiety Eye Exam: PERRL/EOMI, eyes nml inspection ENT Exam: normal ENT inspection, hearing grossly normal, TMs normal, pharynx normal, nasal congestion Neck Exam: normal inspection, non-tender, supple, full range of motion Respiratory Exam: normal breath sounds, lungs clear, no respiratory distress, no accessory muscle use, No chest non-tender, No respiratory distress, No accessory muscle use Cardiovascular/Chest Exam: tachycardia Gastrointestinal/Abdominal Exam: soft, non tender, no distention, no mass, no guarding, no ecchymosis, no organomegaly, no pulsatile mass, normal bowel sounds Pelvic Exam: not done Rectal Exam: not done Extremity Exam: non-tender Neurologic Exam: alert, oriented x 3, 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, 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, normal mood/affect, nml cerebellar function, nml station & gait, sensation nml Skin Exam: normal color, warm, dry Lymphatic: No adenopathy SpO2 Interpretation: normal O2 Delivery: Room Air Ordered Tests: Active Orders 24 hr Category Date Time Status UA W/RFX UR CULTURE Stat Lab 03/12/23 17:04 Completed Lab/Rad Data: Laboratory Results 03/12/23 03/12/23 03/12/23 Range/Units 17:32 17:32 17:04 Urine Color Yellow (Yellow) Urine Appearance Clear (Clear) Urine pH 6.5 (4.6-8.0) Ur Specific [place] 1.020 (1.005-1.030) Urine Protein Negative (Negative) Urine Glucose (UA) Negative (Negative) mg/dL Urine Ketones Negative (Negative) Urine Blood Negative (Negative) Urine Nitrite Negative (Negative) Urine Bilirubin Negative (Negative) Urine Urobilinogen 1.0 A (0.2) mg/dL Ur Leukocyte Esterase Negative (Negative) U Hyaline Cast (Auto) NONE SEEN (0-2) /LPF Urine Microscopic RBC 0-2 (0-5) /HPF Urine Microscopic WBC 0-2 (0-5) /HPF Ur Epithelial Cells Rare (None Seen) /HPF Urine Bacteria None Seen (None Seen) /HPF Urine Culture Reflexed NO (NO) Influenza Type A Ag NEGATIVE (NEGATIVE) Influenza Type B Ag NEGATIVE (NEGATIVE) RSV (PCR) NEGATIVE (NEGATIVE) SARS-CoV-2 (PCR) NEGATIVE (NEGATIVE) Group A Strep Antibody NOT DETECTED (NEGATIVE) - Progress Progress: unchanged Progress Note: 03/12/23 18:35 Patient's medical issue is of low complexity. The level complexity and the work-up performed is based on review of the patient's past medical history, review of the patient's medication list, review of the patient's drug allergy list, history present illness and physical findings on examination. The patient underwent a urinalysis, viral studies, group A strep. I reviewed the results of the studies and they are negative. Patient clinically has sinusitis and I will treat her with a Z-Carlos and prednisone Counseled pt/family regarding: lab results, diagnosis, need for follow-up Medical Desision Making - Diagnostic Testing Diagnostic test were ordered, analyzed, and reviewed by me: No - Risk of complications The pt has a mod risk of morbidity or mortality based on: Need for prescription drug management - Departure Departure Disposition: Home Clinical Impression: Sinusitis Condition: Stable Critical Care Time: No Referrals: SONYA VITAL [Primary Care Provider] - Follow up/PCP as directed Additional Instructions: Take your medication as prescribed. Follow-up with your primary care provider for further evaluation management. Prescriptions: Prednisone 10 mg [Deltasone 10 mg] 10 mg PO TID #12 tablet Azithromycin 250 mg [Zithromax 250 MG TABLET] 250 mg PO ZPACK #4 tablet
[2023-03-12 17:16] LABS: Appearance Clear (Clear); Bacteria None Seen /HPF (None Seen); Bilirubin Negative (Negative); Blood Negative (Negative); Epithelial Cells Rare /HPF (None Seen); Glucose, Urine Negative (Negative); Hyaline Casts NONE SEEN /LPF (0-2); Ketones Negative (Negative); Leukocyte Esterase Negative (Negative); Nitrite Negative (Negative); Ph 6.5 (4.6-8.0); Protein,Urine Dip Negative (Negative); RBC 0-2 /HPF (0-5); WBC 0-2 /HPF (0-5)
[2023-03-12 17:20] LABS: ADD URINE CULTURE? NO (NO)
[2023-03-12 17:55] VITALS: BP 118/83; PULSE 104; O2SAT 98
[2023-03-12 18:11] LABS: INFLUENZA A NEGATIVE (NEGATIVE); INFLUENZA B NEGATIVE (NEGATIVE); RESPIRATORY SYNCTIAL VIRUS NEGATIVE (NEGATIVE); SARS-CoV-2 Xpert Express NEGATIVE (NEGATIVE)
[2023-03-12] MEDS ORDERED: DELTASONE 20 MG PO ONE (18:34)
[2023-03-12] MEDS ORDERED: Zithromax 250 MG TABLET PO ONE (18:34)
[2023-03-12] MEDS ORDERED: Zithromax 250 MG TABLET ONE (18:38)
[2023-03-12] MEDS ORDERED: DELTASONE 20 MG ONE (18:38)
== END 2023-03-12 18:55 | disposition home or self-care (01) ==
LOC: ED 16:51
DX: J32.9 Chronic sinusitis, unspecified (principal); H92.03 Otalgia, bilateral; R09.81 Nasal congestion; Z79.52 Long term (current) use of systemic steroids; Z72.0 Tobacco use
CPT/HCPCS: 0241U; 81001; 87651; 99283; A9270-GY

== ENCOUNTER 2023-05-10 19:57 | Emergency (ER) | payer OTHER ==
[2023-05-10] MEDS ORDERED: MORPHINE SULFATE 2 MG INJ IV ONE (20:01)
[2023-05-10] MEDS ORDERED: Sodium Chloride 0.9% 1000 ML 1,000 ML IV STA (20:01)
[2023-05-10 20:05] VITALS: TEMP 98.9; O2SAT 98
[2023-05-10] MEDS ORDERED: MORPHINE SULFATE 2 MG INJ ONE (20:09)
[2023-05-10] MEDS ORDERED: Sodium Chloride 0.9% 1000 ML 1,000 ML ONE (20:09)
[2023-05-10 20:21] LABS: Absolute Neutrophil Ct (ANC) 6.66 x10^3/uL (1.4-6.9); BASOPHIL % 0.7 % (0.0-0.4); Basophil (Absolute #) 0.08 x10^3/uL (0-0.4); Eosinophil % 1.6 % (0.00-5.0); Eosinophil (Absolute #) 0.18 x10^3/uL (0-0.5); Hematocrit 39.9 % (35-47); Hemoglobin 13.4 g/dL (12.0-16.0); IMMATURE GRAN # 0.01 x10^3u/L (0.00-0.03); IMMATURE GRAN % 0.1 % (0.00-0.4); Lymphocyte (Absolute #) 2.87 x10^3/uL (1.0-4.6); Lymphocytes % 26.3 % (24.0-44.0); Mean Cell Volume 89.5 fL (78-100); Mean Corpuscular Hgb Concent. 33.6 g/dL (32-36); Mean Platelet Volume 9.8 fL (7.5-11.0); Monocyte (Absolute #) 1.13 x10^3/uL (0.0-1.3); Monocytes % 10.3 % (0.0-12.0); Platelet Count 330 x10^3/uL (150-450); Red Blood Count 4.46 x10^6/uL (4.1-5.4); Red Cell Distribution Width 11.5 % (11.5-14.0); White Blood Count 10.9 x10^3/uL (4.0-10.5)
[2023-05-10 20:42] LABS: ALBUMIN 4.6 g/dL (3.5-5.0); ALKALINE PHOSPHATASE 76 U/L (38-126); ANION GAP 16.1 MEQ/L (5-15); BLOOD UREA NITROGEN 15 mg/dL (7-17); CHLORIDE 106 mmol/L (98-107); Carbon Dioxide 21 mmol/L (22-30); Creatinine 1 0.58 mg/dL (0.52-1.04); EST GLOMERULAR FILTRATION RATE > 60.0 ML/MIN; Glucose 94 mg/dL (74-106); LIPASE 118 U/L (23-300); NT PRO BNPII < 20.0 pg/mL (<300); Potassium 4.1 mmol/L (3.5-5.1); SGOT/AST 22 U/L (14-36); SGPT/ALT 16 U/L (0-35); SODIUM 139 mmol/L (137-145); Total Protein 7.3 g/dL (6.3-8.2)
[2023-05-10 21:24] LABS: HCG URINE TEST NEGATIVE (NEGATIVE)
[2023-05-10 21:38] VITALS: BP 106/80; PULSE 90; RESP 30
[2023-05-10 21:38] LABS: Amphetamine,Urine NEGATIVE (NEGATIVE); Barbiturate,Urine NEGATIVE (NEGATIVE); Benzodiazepine,Urine NEGATIVE (NEGATIVE); Cocaine,Urine NEGATIVE (NEGATIVE); Methadone,Urine NEGATIVE (NEGATIVE); Opiate,Urine POSITIVE (NEGATIVE); PCP,Urine NEGATIVE (NEGATIVE); THC,Urine NEGATIVE (NEGATIVE)
--- NOTE | 2023-05-10 21:38 | ERPHSYRPT ---
- History of Present Illness Time Seen by Provider: 05/10/23 20:05 Historian: patient, family Patient Subjective Stated Complaint: pt states "I started having chest pain about 2 hrs ago." Triage Nursing Assessment: pt ambulatory to bed by self, along with mother, pt alert and oriented x3, skin pwd, pt c/o chest pain, when asked how long the chest pain has been going on for, pt states "It has been on and off for years." pt sees dr. lindsey. Physician History: Patient is a 22-year-old white female who is followed by Dr. Carmelo lai for vague cardiac problems. She has chest pain all over her chest for on and off for years. She has worn monitors and so on but the results of those kind of studies are unknown to her this chest pain started 2 hours prior to arrival she is not short of breath she is not nauseated sweaty etc. Timing/Duration: today Activities at Onset: none Quality: pressure Location: substernal Chest Pain Radiation: no radiation Severity of Pain-Max: moderate Severity of Pain-Current: mild Modifying Factors: Improves With: nothing Associated Symptoms: denies symptoms Prior Chest Pain/Cardiac Workup: recently seen/treated (She has been seen and treated by Dr. Wright for some time now.) Nitro Today/Relief: no nitro taken today Aspirin Treatment Today: no aspirin today Allergies/Adverse Reactions: duloxetine [From Cymbalta] Allergy (Severe, Verified 02/20/23 15:15) ibuprofen [From Motrin] Allergy (Mild, Verified 05/10/23 20:01) antipsychotic Allergy (Uncoded 02/20/23 15:15) Hx Tetanus, Diphtheria Vaccination/Date Given: Yes Hx Influenza Vaccination/Date Given: Yes Hx Pneumococcal Vaccination/Date Given: No Immunizations Up to Date: Yes Travel Risk - International Travel Have you traveled outside of the country in past 3 weeks: No - Coronavirus Screening Are you exhibiting any of the following symptoms?: No Close contact with a COVID-19 positive Pt in past 14-21 Days: No - Vaccine Status Have you recieved a Covid-19 vaccination: Yes Victim Advocate: Aspyra - Review of Systems Constitutional: No Fever, No Chills Eyes: No Symptoms Ears, Nose, & Throat: No Symptoms Respiratory: No Cough, No Dyspnea Cardiac: Chest Pain, No Edema, No Syncope Abdominal/Gastrointestinal: No Abdominal Pain, No Nausea, No Vomiting, No Diarrhea Genitourinary Symptoms: No Dysuria Musculoskeletal: No Back Pain, No Neck Pain Skin: No Rash Neurological: No Dizziness, No Focal Weakness, No Sensory Changes Psychological: No Symptoms Endocrine: No Symptoms All Other Systems: Reviewed and Negative - Past Medical History Pertinent Past Medical History: Yes Neurological History: Migraines ENT History: No Pertinent History Cardiac History: No Pertinent History Respiratory History: No Pertinent History Endocrine Medical History: No Pertinent History Musculoskeletal History: No Pertinent History GI Medical History: No Pertinent History History: No Pertinent History Psycho-Social History: Anxiety, Bipolar, Depression Female Reproductive Disorders: No Pertinent History Other Medical History: borderline personality. sinus tachycardia - Past Surgical History Past Surgical History: Yes Neuro Surgical History: No Pertinent History Cardiac: No Pertinent History Respiratory: No Pertinent History Gastrointestinal: No Pertinent History Genitourinary: No Pertinent History Musculoskeletal: No Pertinent History Female Surgical History: No Pertinent History Other Surgical History: cyst removed, test for painful bladder syndrome that required anesthesia - Social History Smoking Status: Current every day smoker Exposure to second hand smoke: Yes Drug Use: none Patient Lives Alone: No Significant Family History: no pertinent family hx - Female History Hx Last Menstrual Period: 04/16/23 Hx Now: No - Nursing Vital Signs Nursing Vital Signs: Initial Vital Signs Temperature 98.9 F 05/10/23 19:58 Pulse Rate 93 H 05/10/23 19:58 Respiratory Rate 24 05/10/23 19:58 Blood Pressure 118/75 05/10/23 19:58 O2 Sat by Pulse Oximetry 98 05/10/23 19:58 Pain Scale Pain Intensity 9 - Physical Exam General Appearance: no apparent distress, alert Eye Exam: PERRL/EOMI, eyes nml inspection Ears, Nose, Throat Exam: normal ENT inspection, moist mucous membranes Neck Exam: normal inspection, non-tender, supple, full range of motion Respiratory Exam: normal breath sounds, lungs clear, No respiratory distress Cardiovascular Exam: regular rate/rhythm, normal heart sounds Gastrointestinal/Abdomen Exam: soft, No tenderness, No mass Back Exam: normal inspection, No CVA tenderness, No vertebral tenderness Extremity Exam: normal inspection, normal range of motion Neurologic Exam: alert, oriented x 3, cooperative, normal mood/affect, sensation nml, No motor deficits Skin Exam: normal color, warm, dry SpO2: 98 - Course Nursing assessment & vital signs reviewed: Yes EKG Interpreted by Me: RATE (96), Sinus Rhythm, NORMAL AXIS, NORMAL QRS, NORMAL ST-T - Radiology Exams Chest X-ray Interpretation: Interpreted by me, Negative Ordered Tests: Active Orders 24 hr Category Date Time Status EKG-ER Only STAT Care 05/10/23 20:01 Active IV Insertion STAT Care 05/10/23 20:01 Active CHEST 1 VIEW (PORTABLE) Stat Exams 05/10/23 20:01 Ordered CBC W DIFF Stat Lab 05/10/23 20:10 Completed CMP Stat Lab 05/10/23 20:10 Completed D-DIMER QUANTITATIVE Stat Lab 05/10/23 20:10 Completed HCG QUALITATIVE, URINE Stat Lab 05/10/23 Completed LIPASE Stat Lab 05/10/23 20:10 Completed Lactic Acid Stat Lab 05/10/23 20:01 Completed NT PRO BNPII Stat Lab 05/10/23 20:10 Completed TROPONIN Q4H Lab 05/10/23 20:10 Completed TROPONIN Q4H Lab 05/11/23 00:15 Ordered TROPONIN Q4H Lab 05/11/23 04:15 Ordered UA W/RFX UR CULTURE Stat Lab 05/10/23 20:31 Received Urine Triage Profile Stat Lab 05/10/23 20:31 Received Medication Summary Discontinued Medications Generic Name Dose Route Start Last Admin Trade Name Jose PRN Reason Stop Dose Admin Sodium Chloride 1,000 mls @ 999 mls/hr 05/10/23 20:01 05/10/23 20:09 Sodium Chloride 0.9% 1000 Ml IV 05/10/23 21:01 999 mls/hr .Q1H1M STA Administration Sodium Chloride Confirm 05/10/23 20:09 Sodium Chloride 0.9% 1000 Ml Administered 05/10/23 20:10 Dose 1,000 mls @ ud .ROUTE .STK-MED ONE Morphine Sulfate 2 mg 05/10/23 20:01 05/10/23 20:09 Morphine Sulfate 2 Mg/Ml Inj IV 05/10/23 20:02 2 mg STAT ONE Administration Morphine Sulfate Confirm 05/10/23 20:09 Morphine Sulfate 2 Mg/Ml Inj Administered 05/10/23 20:10 Dose 2 mg .ROUTE .STK-MED ONE Lab/Rad Data: Laboratory Result Diagrams 05/10/23 20:10 05/10/23 20:10 Laboratory Results 05/10/23 05/10/23 05/10/23 Range/Units Unknown 20:10 20:10 WBC (4.0-10.5) x10^3/uL RBC (4.1-5.4) x10^6/uL Hgb (12.0-16.0) g/dL Hct (35-47) % MCV (78-100) fL MCH (26-32) pg MCHC (32-36) g/dL RDW (11.5-14.0) % Plt Count (150-450) x10^3/uL MPV (7.5-11.0) fL Gran % (36.0-66.0) % Immature Gran % (Auto) (0.00-0.4) % Nucleat RBC Rel Count (0.00-0.1) % Eos # (Auto) (0-0.5) x10^3/uL Immature Gran # (Auto) (0.00-0.03) x10^3u/L Absolute Lymphs (auto) (1.0-4.6) x10^3/uL Absolute Monos (auto) (0.0-1.3) x10^3/uL Absolute Nucleated RBC (0.00-0.01) x10^3u/L Lymphocytes % (24.0-44.0) % Monocytes % (0.0-12.0) % Eosinophils % (0.00-5.0) % Basophils % (0.0-0.4) % Absolute Granulocytes (1.4-6.9) x10^3/uL Basophils # (0-0.4) x10^3/uL D-Dimer 0.19 (0.0-0.50) mg/L Sodium (137-145) mmol/L Potassium (3.5-5.1) mmol/L Chloride (98-107) mmol/L Carbon Dioxide (22-30) mmol/L Anion Gap (5-15) MEQ/L BUN (7-17) mg/dL Creatinine (0.52-1.04) mg/dL Estimated GFR ML/MIN Glucose (74-106) mg/dL Lactic Acid (0.4-2.0) Calcium (8.4-10.2) mg/dL Total Bilirubin (0.2-1.3) mg/dL AST (14-36) U/L ALT (0-35) U/L Alkaline Phosphatase (38-126) U/L Troponin I < 0.012 (0.000-0.034) ng/mL NT-Pro-B Natriuret Pep (<300) pg/mL Serum Total Protein (6.3-8.2) g/dL Albumin (3.5-5.0) g/dL Lipase (23-300) U/L Urine HCG, Qual NEGATIVE (NEGATIVE) 05/10/23 05/10/23 05/10/23 Range/Units 20:10 20:10 20:01 WBC 10.9 H (4.0-10.5) x10^3/uL RBC 4.46 (4.1-5.4) x10^6/uL Hgb 13.4 (12.0-16.0) g/dL Hct 39.9 (35-47) % MCV 89.5 (78-100) fL MCH 30.0 (26-32) pg MCHC 33.6 (32-36) g/dL RDW 11.5 (11.5-14.0) % Plt Count 330 (150-450) x10^3/uL MPV 9.8 (7.5-11.0) fL Gran % 61.0 (36.0-66.0) % Immature Gran % (Auto) 0.1 (0.00-0.4) % Nucleat RBC Rel Count 0.0 (0.00-0.1) % Eos # (Auto) 0.18 (0-0.5) x10^3/uL Immature Gran # (Auto) 0.01 (0.00-0.03) x10^3u/L Absolute Lymphs (auto) 2.87 (1.0-4.6) x10^3/uL Absolute Monos (auto) 1.13 (0.0-1.3) x10^3/uL Absolute Nucleated RBC 0.00 (0.00-0.01) x10^3u/L Lymphocytes % 26.3 (24.0-44.0) % Monocytes % 10.3 (0.0-12.0) % Eosinophils % 1.6 (0.00-5.0) % Basophils % 0.7 (0.0-0.4) % Absolute Granulocytes 6.66 (1.4-6.9) x10^3/uL Basophils # 0.08 (0-0.4) x10^3/uL D-Dimer (0.0-0.50) mg/L Sodium 139 (137-145) mmol/L Potassium 4.1 (3.5-5.1) mmol/L Chloride 106 (98-107) mmol/L Carbon Dioxide 21 L (22-30) mmol/L Anion Gap 16.1 H (5-15) MEQ/L BUN 15 (7-17) mg/dL Creatinine 0.58 (0.52-1.04) mg/dL Estimated GFR > 60.0 ML/MIN Glucose 94 (74-106) mg/dL Lactic Acid 1.2 (0.4-2.0) Calcium 9.0 (8.4-10.2) mg/dL Total Bilirubin 0.30 (0.2-1.3) mg/dL AST 22 (14-36) U/L ALT 16 (0-35) U/L Alkaline Phosphatase 76 (38-126) U/L Troponin I (0.000-0.034) ng/mL NT-Pro-B Natriuret Pep < 20.0 (<300) pg/mL Serum Total Protein 7.3 (6.3-8.2) g/dL Albumin 4.6 (3.5-5.0) g/dL Lipase 118 (23-300) U/L Urine HCG, Qual (NEGATIVE) - Progress Progress: improved Air Movement: good Blood Culture(s) Obtained: No Antibiotics given: No Medical Desision Making - Independent Historian Additional History obtained from: Mother - Diagnostic Testing Diagnostic test were ordered, analyzed, and reviewed by me: Yes Radiological Interpretation: Interpreted by me - Risk of complications Low Risk: Low risk of morbidity from additional dx testing or treatment - Departure Departure Disposition: Home Clinical Impression: Chest pain Condition: Stable Critical Care Time: No Referrals: SONYA VITAL [Primary Care Provider] - Follow up/PCP as directed Instructions: Chest Pain (DC)
[2023-05-10 21:45] LABS: Appearance Cloudy (Clear); Bacteria None Seen /HPF (None Seen); Bilirubin Negative (Negative); Blood Negative (Negative); Epithelial Cells Rare /HPF (None Seen); Glucose, Urine Negative (Negative); Hyaline Casts NONE SEEN /LPF (0-2); Ketones Trace (Negative); Leukocyte Esterase Negative (Negative); Nitrite Negative (Negative); Ph 6.5 (4.6-8.0); Protein,Urine Dip Negative (Negative); Specific Gravity >=1.030 (1.005-1.030); WBC 0-2 /HPF (0-5)
[2023-05-10 21:46] LABS: ADD URINE CULTURE? NO (NO)
--- NOTE | 2023-05-11 08:50 | XRAY ---
Indication: Chest pain. Comparison: None Portable chest demonstrates normal heart, lungs, and bony thorax.
== END 2023-05-10 21:45 | disposition home or self-care (01) ==
LOC: ED 19:57
DX: R07.9 Chest pain, unspecified (principal); R06.02 Shortness of breath; R53.83 Other fatigue; Z72.0 Tobacco use
CPT/HCPCS: 36000; 36415; 71045; 80053; 80307; 81001; 81025; 83605; 83690; 83880; 84484; 85025; 85379; 93005; 96360; 96374; 99284; J2270

== ENCOUNTER 2023-07-02 21:06 | Emergency (ER) | payer OTHER ==
[2023-07-02 21:12] VITALS: TEMP 98.8
[2023-07-02 21:27] LABS: Absolute Neutrophil Ct (ANC) 6.07 x10^3/uL (1.4-6.9); BASOPHIL % 0.6 % (0.0-0.4); Basophil (Absolute #) 0.06 x10^3/uL (0-0.4); Eosinophil % 0.3 % (0.00-5.0); Eosinophil (Absolute #) 0.03 x10^3/uL (0-0.5); Hematocrit 38.6 % (35-47); Hemoglobin 13.6 g/dL (12.0-16.0); IMMATURE GRAN # 0.02 x10^3u/L (0.00-0.03); IMMATURE GRAN % 0.2 % (0.00-0.4); Lymphocyte (Absolute #) 2.46 x10^3/uL (1.0-4.6); Mean Cell Volume 86.7 fL (78-100); Mean Corpuscular Hemoglobin 30.6 pg (26-32); Mean Corpuscular Hgb Concent. 35.2 g/dL (32-36); Mean Platelet Volume 9.8 fL (7.5-11.0); Monocyte (Absolute #) 0.82 x10^3/uL (0.0-1.3); Monocytes % 8.7 % (0.0-12.0); Neutrophil % 64.2 % (36.0-66.0); Platelet Count 320 x10^3/uL (150-450); Red Blood Count 4.45 x10^6/uL (4.1-5.4); Red Cell Distribution Width 11.1 % (11.5-14.0); White Blood Count 9.5 x10^3/uL (4.0-10.5)
[2023-07-02 21:42] LABS: ALBUMIN 4.5 g/dL (3.5-5.0); ALKALINE PHOSPHATASE 61 U/L (38-126); ANION GAP 14.3 MEQ/L (5-15); BLOOD UREA NITROGEN 10 mg/dL (7-17); CHLORIDE 106 mmol/L (98-107); Calcium 9.1 mg/dL (8.4-10.2); Carbon Dioxide 19 mmol/L (22-30); Creatinine 1 0.45 mg/dL (0.52-1.04); EST GLOMERULAR FILTRATION RATE > 60.0 ML/MIN; Glucose 77 mg/dL (74-106); Potassium 3.6 mmol/L (3.5-5.1); SGOT/AST 27 U/L (14-36); SGPT/ALT 14 U/L (0-35); SODIUM 136 mmol/L (137-145); Total Protein 7.3 g/dL (6.3-8.2)
[2023-07-02] MEDS ORDERED: BABY ASPIRIN 81 MG CHEW ONE (21:44)
[2023-07-02] MEDS: BABY ASPIRIN 81 MG CHEW PO ONE ×2 (21:45→21:49)
[2023-07-02] MEDS ORDERED: TYLENOL 325 MG PO STA (21:47)
[2023-07-02] MEDS ORDERED: Pepcid 20 MG PO ONE (21:48)
[2023-07-02] MEDS ORDERED: TYLENOL 325 MG ONE (21:49)
[2023-07-02] MEDS ORDERED: Pepcid 20 MG ONE (21:49)
--- NOTE | 2023-07-02 21:53 | ERPHSYRPT ---
- History of Present Illness Time Seen by Provider: 07/02/23 21:27 Historian: patient Exam Limitations: no limitations Patient Subjective Stated Complaint: chest discomfort and abd cramping Triage Nursing Assessment: pt ambulated into ER without diff, mom at bedside. Pt c/o midsternal chest discomfort and upper abd pain. Pt describes it as cram ping. Pt is 11 wks with a 01/21/24 delivery date. Lungs clear, heart tones reg/tachy. Pt denies any radiation of the chest pain. Physician History: 22 years old 2 para 0 at 11 weeks gestation presented in the ER with chief complaint of epigastric and substernal chest pain. Patient described this as a dull aching burning sensation. Mild to moderate, no significant aggravating or relieving factors. Denies associated nausea or vomiting. Patient does have history of chronic palpitations which is not any worse than usual. Denies any difficulty breathing. No fever or chills cough or sick contact reported. Denies any pelvic cramping/bleeding vaginally. Denies any urinary complaints. Nitro Today/Relief: no nitro taken today Aspirin Treatment Today: no aspirin today Allergies/Adverse Reactions: duloxetine [From Cymbalta] Allergy (Severe, Verified 07/02/23 21:24) ibuprofen [From Motrin] Allergy (Mild, Verified 07/02/23 21:24) antipsychotic Allergy (Uncoded 07/02/23 21:24) Home Medications: Pnv,Calcium 72/Iron/Folic Acid [ Vitamin Plus Low Iron] 1 tab PO DAILY 07/02/23 [History] Promethazine HCl 12.5 mg PO TID PRN PRN 07/02/23 [History] Pyridoxine HCl (Vitamin B6) [Vitamin B-6] 1 tab PO DAILY 07/02/23 [History] Hx Tetanus, Diphtheria Vaccination/Date Given: Yes Hx Influenza Vaccination/Date Given: No Hx Pneumococcal Vaccination/Date Given: No Immunizations Up to Date: Yes Travel Risk - International Travel Have you traveled outside of the country in past 3 weeks: No - Coronavirus Screening Are you exhibiting any of the following symptoms?: No Close contact with a COVID-19 positive Pt in past 14-21 Days: No - Vaccine Status Have you recieved a Covid-19 vaccination: Yes 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 - Review of Systems Constitutional: No Symptoms Eyes: No Symptoms Ears, Nose, & Throat: No Symptoms Respiratory: No Symptoms Cardiac: Chest Pain Abdominal/Gastrointestinal: No Symptoms Genitourinary Symptoms: Musculoskeletal: No Symptoms Skin: No Symptoms Neurological: No Symptoms Endocrine: No Symptoms Hematologic/Lymphatic: No Symptoms - Past Medical History Pertinent Past Medical History: Yes Neurological History: Migraines ENT History: No Pertinent History Cardiac History: No Pertinent History Respiratory History: No Pertinent History Endocrine Medical History: No Pertinent History Musculoskeletal History: No Pertinent History GI Medical History: No Pertinent History History: No Pertinent History Psycho-Social History: Anxiety, Bipolar, Depression Female Reproductive Disorders: No Pertinent History Other Medical History: borderline personality. sinus tachycardia - Past Surgical History Past Surgical History: Yes Neuro Surgical History: No Pertinent History Cardiac: No Pertinent History Respiratory: No Pertinent History Gastrointestinal: No Pertinent History Genitourinary: No Pertinent History Musculoskeletal: No Pertinent History Female Surgical History: No Pertinent History Other Surgical History: cyst removed, test for painful bladder syndrome that required anesthesia - Social History Smoking Status: Current every day smoker How long have you smoked: 3 Exposure to second hand smoke: Yes Drug Use: none Patient Lives Alone: No Significant Family History: no pertinent family hx - Female History Hx Last Menstrual Period: 04/14/23 Hx Now: (unkn) Gestational Age: 11 wks - Nursing Vital Signs Nursing Vital Signs: Initial Vital Signs Temperature 98.8 F 07/02/23 21:10 Pulse Rate 104 H 07/02/23 21:10 Respiratory Rate 16 07/02/23 21:10 Blood Pressure 106/71 07/02/23 21:10 O2 Sat by Pulse Oximetry 99 07/02/23 21:10 Pain Scale Pain Intensity 2 - Physical Exam General Appearance: no apparent distress, alert Eye Exam: PERRL/EOMI Ears, Nose, Throat Exam: normal ENT inspection Neck Exam: normal inspection, non-tender, supple, full range of motion Respiratory Exam: normal breath sounds, lungs clear Cardiovascular Exam: regular rate/rhythm, normal heart sounds Gastrointestinal/Abdomen Exam: soft, normal bowel sounds, No tenderness, No distention Back Exam: normal inspection Extremity Exam: normal inspection, normal range of motion Neurologic Exam: alert, oriented x 3, cooperative, No depressed mood/affect (Anxious) Skin Exam: normal color SpO2 Interpretation: normal SpO2: 99 O2 Delivery: Room Air - Course EKG Interpreted by Me: RATE (99), Sinus Rhythm, NORMAL AXIS, NORMAL INTERVALS, NORMAL QRS Ordered Tests: Active Orders 24 hr Category Date Time Status Jackhammer Operator STAT Care 07/02/23 21:22 Completed EKG-ER Only STAT Care 07/02/23 21:21 Completed IV Insertion STAT Care 07/02/23 21:21 Completed CHEST 1 VIEW (PORTABLE) Stat Exams 07/02/23 21:21 Taken CBC W DIFF Stat Lab 07/02/23 21:20 Completed CMP Stat Lab 07/02/23 21:20 Completed HCG QUALITATIVE, URINE Stat Lab 07/02/23 21:58 Completed LIPASE Stat Lab 07/02/23 21:50 Completed TROPONIN Q4H Lab 07/02/23 21:20 Completed UA W/RFX UR CULTURE Stat Lab 07/02/23 21:57 Completed Medication Summary Discontinued Medications Generic Name Dose Route Start Last Admin Trade Name Freq PRN Reason Stop Dose Admin Acetaminophen 975 mg 07/02/23 21:47 07/02/23 21:50 Acetaminophen 325 Mg Tablet PO 07/02/23 21:48 975 mg STAT STA Administration Acetaminophen Confirm 07/02/23 21:49 Acetaminophen 325 Mg Tablet Administered 07/02/23 21:50 Dose 975 mg .ROUTE .STK-MED ONE Aspirin 324 mg 07/02/23 21:21 07/02/23 21:49 Aspirin 81 Mg Tab.Chew PO 07/02/23 21:22 Not Given STAT ONE Aspirin Confirm 07/02/23 21:44 Aspirin 81 Mg Tab.Chew Administered 07/02/23 21:45 Dose 324 mg .ROUTE .STK-MED ONE Famotidine 20 mg 07/02/23 21:48 07/02/23 21:50 Famotidine 20 Mg Tablet PO 07/02/23 21:49 20 mg STAT ONE Administration Famotidine Confirm 07/02/23 21:49 Famotidine 20 Mg Tablet Administered 07/02/23 21:50 Dose 20 mg .ROUTE .STK-MED ONE Lab/Rad Data: Laboratory Result Diagrams 07/02/23 21:20 07/02/23 21:20 Laboratory Results 07/02/23 07/02/23 07/02/23 Range/Units 21:58 21:57 21:50 WBC (4.0-10.5) x10^3/uL RBC (4.1-5.4) x10^6/uL Hgb (12.0-16.0) g/dL Hct (35-47) % MCV (78-100) fL MCH (26-32) pg MCHC (32-36) g/dL RDW (11.5-14.0) % Plt Count (150-450) x10^3/uL MPV (7.5-11.0) fL Gran % (36.0-66.0) % Immature Gran % (Auto) (0.00-0.4) % Nucleat RBC Rel Count (0.00-0.1) % Eos # (Auto) (0-0.5) x10^3/uL Immature Gran # (Auto) (0.00-0.03) x10^3u/L Absolute Lymphs (auto) (1.0-4.6) x10^3/uL Absolute Monos (auto) (0.0-1.3) x10^3/uL Absolute Nucleated RBC (0.00-0.01) x10^3u/L Lymphocytes % (24.0-44.0) % Monocytes % (0.0-12.0) % Eosinophils % (0.00-5.0) % Basophils % (0.0-0.4) % Absolute Granulocytes (1.4-6.9) x10^3/uL Basophils # (0-0.4) x10^3/uL Sodium (137-145) mmol/L Potassium (3.5-5.1) mmol/L Chloride (98-107) mmol/L Carbon Dioxide (22-30) mmol/L Anion Gap (5-15) MEQ/L BUN (7-17) mg/dL Creatinine (0.52-1.04) mg/dL Estimated GFR ML/MIN Glucose (74-106) mg/dL Calcium (8.4-10.2) mg/dL Total Bilirubin (0.2-1.3) mg/dL AST (14-36) U/L ALT (0-35) U/L Alkaline Phosphatase (38-126) U/L Troponin I (0.000-0.034) ng/mL Serum Total Protein (6.3-8.2) g/dL Albumin (3.5-5.0) g/dL Lipase 87 (23-300) U/L Urine Color Yellow (Yellow) Urine Appearance Clear (Clear) Urine pH 6.0 (4.6-8.0) Ur Specific [place] 1.020 (1.005-1.030) Urine Protein Negative (Negative) Urine Glucose (UA) Negative (Negative) mg/dL Urine Ketones >=160 A (Negative) Urine Blood Negative (Negative) Urine Nitrite Negative (Negative) Urine Bilirubin Negative (Negative) Urine Urobilinogen 1.0 A (0.2) mg/dL Ur Leukocyte Esterase Negative (Negative) U Hyaline Cast (Auto) NONE SEEN (0-2) /LPF Urine Microscopic RBC 0-2 (0-5) /HPF Urine Microscopic WBC 3-5 (0-5) /HPF Ur Epithelial Cells Few (None Seen) /HPF Urine Bacteria None Seen (None Seen) /HPF Urine Culture Reflexed NO (NO) Urine HCG, Qual POSITIVE (NEGATIVE) 07/02/23 07/02/23 07/02/23 Range/Units 21:20 21:20 21:20 WBC 9.5 (4.0-10.5) x10^3/uL RBC 4.45 (4.1-5.4) x10^6/uL Hgb 13.6 (12.0-16.0) g/dL Hct 38.6 (35-47) % MCV 86.7 (78-100) fL MCH 30.6 (26-32) pg MCHC 35.2 (32-36) g/dL RDW 11.1 L (11.5-14.0) % Plt Count 320 (150-450) x10^3/uL MPV 9.8 (7.5-11.0) fL Gran % 64.2 (36.0-66.0) % Immature Gran % (Auto) 0.2 (0.00-0.4) % Nucleat RBC Rel Count 0.0 (0.00-0.1) % Eos # (Auto) 0.03 (0-0.5) x10^3/uL Immature Gran # (Auto) 0.02 (0.00-0.03) x10^3u/L Absolute Lymphs (auto) 2.46 (1.0-4.6) x10^3/uL Absolute Monos (auto) 0.82 (0.0-1.3) x10^3/uL Absolute Nucleated RBC 0.00 (0.00-0.01) x10^3u/L Lymphocytes % 26.0 (24.0-44.0) % Monocytes % 8.7 (0.0-12.0) % Eosinophils % 0.3 (0.00-5.0) % Basophils % 0.6 (0.0-0.4) % Absolute Granulocytes 6.07 (1.4-6.9) x10^3/uL Basophils # 0.06 (0-0.4) x10^3/uL Sodium 136 L (137-145) mmol/L Potassium 3.6 (3.5-5.1) mmol/L Chloride 106 (98-107) mmol/L Carbon Dioxide 19 L (22-30) mmol/L Anion Gap 14.3 (5-15) MEQ/L BUN 10 (7-17) mg/dL Creatinine 0.45 L (0.52-1.04) mg/dL Estimated GFR > 60.0 ML/MIN Glucose 77 (74-106) mg/dL Calcium 9.1 (8.4-10.2) mg/dL Total Bilirubin 0.50 (0.2-1.3) mg/dL AST 27 (14-36) U/L ALT 14 (0-35) U/L Alkaline Phosphatase 61 (38-126) U/L Troponin I < 0.012 (0.000-0.034) ng/mL Serum Total Protein 7.3 (6.3-8.2) g/dL Albumin 4.5 (3.5-5.0) g/dL Lipase (23-300) U/L Urine Color (Yellow) Urine Appearance (Clear) Urine pH (4.6-8.0) Ur Specific [place] (1.005-1.030) Urine Protein (Negative) Urine Glucose (UA) (Negative) mg/dL Urine Ketones (Negative) Urine Blood (Negative) Urine Nitrite (Negative) Urine Bilirubin (Negative) Urine Urobilinogen (0.2) mg/dL Ur Leukocyte Esterase (Negative) U Hyaline Cast (Auto) (0-2) /LPF Urine Microscopic RBC (0-5) /HPF Urine Microscopic WBC (0-5) /HPF Ur Epithelial Cells (None Seen) /HPF Urine Bacteria (None Seen) /HPF Urine Culture Reflexed (NO) Urine HCG, Qual (NEGATIVE) - Progress Progress: improved, re-examined Air Movement: good Progress Note: 07/02/23 21:52 22 years old 2 para 0 at 11 weeks gestation presented in the ER with chief complaint of epigastric and substernal chest pain. Patient described this as a dull aching burning sensation. Mild to moderate, no significant aggravating or relieving factors. Denies associated nausea or vomiting. Patient does have history of chronic palpitations which is not any worse than usual. Denies any difficulty breathing. No fever or chills cough or sick contact reported. Denies any pelvic cramping/bleeding vaginally. Denies any urinary complaints. EKG is normal sinus rhythm with no acute ST elevations. No other ischemic changes. She is given Tylenol and Pepcid for symptomatic relief. Chest x-ray negative for any acute cardiopulmonary findings reviewed by me, official report is pending. This has been going on for the last 3 hours. Patient does not seem to be in any distress. Will obtain baseline labs along with troponin and lipase. No pelvic cramping, no abdominal tenderness, no vaginal bleeding. Do not think needs any other work-up. 07/02/23 23:07 Patient is symptom-free after Tylenol and Pepcid. Lungs bilateral clear to auscultation and chest x-ray negative for any acute cardiopulmonary findings reviewed by me. Negative troponins. Unremarkable chemistries and normal white count. I believe patient has GERD with esophagitis. I have recommended contin ue with Pepcid to go home and quit smoking. I do not think it is cardiac etiology, low heart score, do not think needs more work-up in the ER and can be discharged with outpatient follow-up. Discussed signs symptoms of worsening needing return to ER which she seems understanding. Stable for discharge. Blood Culture(s) Obtained: No Antibiotics given: No Counseled pt/family regarding: lab results, diagnosis, need for follow-up, rad results, smoking cessation Medical Desision Making - Independent Historian Additional History obtained from: Mother - Diagnostic Testing Diagnostic test were ordered, analyzed, and reviewed by me: Yes Radiological Interpretation: Interpreted by me, Reviewed by me - Risk of complications The pt has a mod risk of morbidity or mortality based on: Need for prescription drug management - Departure Departure Disposition: Home Clinical Impression: GERD with esophagitis, Condition: Stable Critical Care Time: No Referrals: SONYA VITAL [Primary Care Provider] - Follow up/PCP as directed Instructions: Acid Reflux and GERD in Adults (DC), Angina (DC) Additional Instructions: Take Tylenol/Pepcid for pain as recommended. Follow-up with primary care/OB for reevaluation early next week. Do not smoke. Return to ER for worsening chest pain or if having difficulty breathing, pelvic cramping, vaginal bleeding or discharge etc. Prescriptions: Famotidine 20 mg [Pepcid 20 MG] 20 mg PO BID #30 tablet
[2023-07-02 22:04] LABS: HCG URINE TEST POSITIVE (NEGATIVE)
[2023-07-02 22:10] LABS: Appearance Clear (Clear); Bacteria None Seen /HPF (None Seen); Bilirubin Negative (Negative); Blood Negative (Negative); Epithelial Cells Few /HPF (None Seen); Glucose, Urine Negative (Negative); Hyaline Casts NONE SEEN /LPF (0-2); Ketones >=160 (Negative); Leukocyte Esterase Negative (Negative); Nitrite Negative (Negative); Protein,Urine Dip Negative (Negative); RBC 0-2 /HPF (0-5)
[2023-07-02 22:14] LABS: ADD URINE CULTURE? NO (NO)
[2023-07-02 23:23] VITALS: BP 102/66; PULSE 92; RESP 16
[2023-07-03 00:37] VITALS: O2SAT 99
--- NOTE | 2023-07-03 08:43 | XRAY ---
Indication: Chest pain. Comparison: May 10, 2023 Portable chest again demonstrates normal heart, lungs, and bony thorax.
== END 2023-07-02 23:22 | disposition home or self-care (01) ==
LOC: ED 21:06
DX: O99.611 Diseases of the digestive system complicating pregnancy, first trimester (principal); Z3A.11 11 weeks gestation of pregnancy; K21.00 Gastro-esophageal reflux disease with esophagitis, without bleeding; R07.9 Chest pain, unspecified; Z72.0 Tobacco use
CPT/HCPCS: 36000; 36415; 71045; 80053; 81001; 81025; 83690; 84484; 85025; 93005; 93041; 99284; A9270-GY

== ENCOUNTER 2023-08-03 09:52 | Emergency (ER) | payer OTHER ==
--- NOTE | 2023-08-03 09:57 | ERPHSYRPT ---
- History of Present Illness Time Seen by Provider: 08/03/23 09:57 Source: patient Exam Limitations: no limitations Physician History: This is a 22-year-old white female patient is 15 weeks and presents with coughing for the last 2 days. She also wants to have heart tones performed to check on the "baby". Patient was diagnosed with mononucleosis 2 weeks ago. She developed a cough and nasal congestion over the last 2 days. She has been using normal saline drops/spray to help relieve nasal congestion. She denies chest pain. She denies abdominal pain. She has not had a fever. She has no abdominal pain. She has had no nausea vomiting or diarrhea symptoms. Timing/Duration: day(s) (2) Cough Quality/Degree: mild, dry cough Possible Cause: no prior episodes Modifying Factors: Improves With: coughing Associated Symptoms: cough, nasal congestion, No fever, No chills, No chest pain/soreness, No headache, No shortness of breath, No sore throat Allergies/Adverse Reactions: duloxetine [From Cymbalta] Allergy (Severe, Verified 08/03/23 10:16) ibuprofen [From Motrin] Allergy (Mild, Verified 08/03/23 10:16) antipsychotic Allergy (Uncoded 08/03/23 10:16) Home Medications: Pnv,Calcium 72/Iron/Folic Acid [ Vitamin Plus Low Iron] 1 tab PO DAILY 07/02/23 [History] Promethazine HCl 12.5 mg PO TID PRN PRN 07/02/23 [History] Pyridoxine HCl (Vitamin B6) [Vitamin B-6] 1 tab PO DAILY 07/02/23 [History] Hx Tetanus, Diphtheria Vaccination/Date Given: Yes Hx Influenza Vaccination/Date Given: No Hx Pneumococcal Vaccination/Date Given: No Travel Risk - International Travel Have you traveled outside of the country in past 3 weeks: No - Coronavirus Screening Are you exhibiting any of the following symptoms?: No Close contact with a COVID-19 positive Pt in past 14-21 Days: No - Vaccine Status Have you recieved a Covid-19 vaccination: Yes 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 - Review of Systems Constitutional: No Symptoms Eyes: No Symptoms Ears, Nose, & Throat: Nose Congestion Respiratory: Cough Cardiac: No Symptoms Abdominal/Gastrointestinal: No Symptoms Genitourinary Symptoms: No Symptoms Musculoskeletal: No Symptoms Skin: No Symptoms Neurological: No Symptoms Psychological: No Symptoms Endocrine: No Symptoms Hematologic/Lymphatic: No Symptoms Immunological/Allergic: No Symptoms All Other Systems: Reviewed and Negative - Past Medical History Pertinent Past Medical History: Yes Neurological History: Migraines ENT History: No Pertinent History Cardiac History: No Pertinent History Respiratory History: No Pertinent History Endocrine Medical History: No Pertinent History Musculoskeletal History: No Pertinent History GI Medical History: No Pertinent History History: No Pertinent History Psycho-Social History: Anxiety, Bipolar, Depression Female Reproductive Disorders: No Pertinent History Other Medical History: borderline personality. sinus tachycardia - Past Surgical History Past Surgical History: Yes Neuro Surgical History: No Pertinent History Cardiac: No Pertinent History Respiratory: No Pertinent History Gastrointestinal: No Pertinent History Genitourinary: No Pertinent History Musculoskeletal: No Pertinent History Female Surgical History: No Pertinent History Other Surgical History: cyst removed, test for painful bladder syndrome that required anesthesia - Social History Smoking Status: Current every day smoker How long have you smoked: 3 Exposure to second hand smoke: Yes Drug Use: none Patient Lives Alone: No Significant Family History: no pertinent family hx - Nursing Vital Signs Nursing Vital Signs: Initial Vital Signs Temperature 97.9 F 08/03/23 10:09 Pulse Rate 109 H 08/03/23 10:09 Respiratory Rate 18 08/03/23 10:09 Blood Pressure 99/74 08/03/23 10:09 O2 Sat by Pulse Oximetry 99 08/03/23 10:09 Pain Scale Pain Intensity 7 - Physical Exam General Appearance: no apparent distress, alert, anxiety Eye Exam: PERRL/EOMI, eyes nml inspection Ears, Nose, Throat Exam: normal ENT inspection, moist mucous membranes Neck Exam: normal inspection, non-tender, supple, full range of motion Respiratory Exam: normal breath sounds, lungs clear, airway intact, No chest tenderness, No respiratory distress Cardiovascular Exam: tachycardia (Slight on admission but at the time of examination regular rate and rhythm.) Gastrointestinal/Abdomen Exam: soft, normal bowel sounds, No tenderness Pelvic Exam: not done Rectal Exam: not done Back Exam: normal inspection, normal range of motion, No CVA tenderness, No vertebral tenderness Extremity Exam: normal inspection, normal range of motion, pelvis stable Neurologic Exam: alert, oriented x 3, cooperative, 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 Level complexity in the work-up performed is based on review the patient's past medical history, review patient's medication list, review of the patient's history of present illness and physical findings on examination. This patient does not require any laboratory radiographic studies. We will perform heart tones, remotely send a prescription of Keflex to her pharmacy and instructed the patient to use Mucinex and Benadryl. She is to continue to use normal saline drops/spray to aid in relieving nasal congestion. Blood Culture(s) Obtained: No Antibiotics given: No Counseled pt/family regarding: diagnosis, need for follow-up Medical Desision Making - Diagnostic Testing Diagnostic test were ordered, analyzed, and reviewed by me: No - Risk of complications The pt has a mod risk of morbidity or mortality based on: Need for prescription drug management - Departure Departure Disposition: Home Clinical Impression: Nasal congestion, Upper respiratory infection Condition: Stable Critical Care Time: No Referrals: SONYA VITAL [Primary Care Provider] - Follow up/PCP as directed Additional Instructions: Drink plenty fluids. Use normal saline spray, [id number] Benadryl and [id number] Mucinex to help relieve nasal congestion and cough. Follow-up with your keyboard instrument tuner by phone today, 08/03/2023 to make arranges for follow-up appointment for further evaluation management. Take your antibiotics as prescribed. Prescriptions: Cephalexin Mh 500 mg [Keflex 500 mg] 500 mg PO TID #21 cap
[2023-08-03 10:10] VITALS: TEMP 97.9
[2023-08-03 10:16] VITALS: O2SAT 98
[2023-08-03 11:05] VITALS: BP 116/78; PULSE 80; RESP 16
== END 2023-08-03 11:04 | disposition home or self-care (01) ==
LOC: ED 09:52
DX: O99.512 Diseases of the respiratory system complicating pregnancy, second trimester (principal); J06.9 Acute upper respiratory infection, unspecified; Z3A.15 15 weeks gestation of pregnancy; R05.1 Acute cough; Z79.899 Other long term (current) drug therapy; Z72.0 Tobacco use
CPT/HCPCS: 99282

== ENCOUNTER 2023-09-15 11:00 | Emergency (ER) | payer OTHER ==
[2023-09-15 11:25] VITALS: RESP 14; TEMP 98.2; O2SAT 97
--- NOTE | 2023-09-15 11:53 | ERPHSYRPT ---
- History of Present Illness Time Seen by Provider: 09/15/23 11:15 Historian: patient Exam Limitations: no limitations Patient Subjective Stated Complaint: pt states that she has abd pain and back pain. pt states that she is 22 weeks Triage Nursing Assessment: pt ambulated into the er; pt is axo x4; c/o abd pain; pt states that pain radiates to back; c/o N/V; pt denies diarrhea; heart tone 152 bpm; abd is soft, round, nontender; active bowel sounds in all quads; mucus membranes pink and moist; vital wnl; no respiratory distress present; skin PDW Physician History: This is a 22-year-old white female patient who is 22 weeks and presents with 2-day history of generalized abdominal pain that is somewhat crampy and associated with vomiting episodes that began today. She has not had any vaginal discharge or bleeding. She has bilateral flank pain as well. She denies cough. She denies shortness of breath. She denies chest pain. Timing/Duration: day(s) (2) Activities at Onset: none Quality: cramping Abdominal Pain Onset Location: generalized abdomen Pain Radiation: no radiation Severity of Pain-Max: mild Severity of Pain-Current: mild Modifying Factors: Improves With: vomiting Associated Symptoms: nausea, vomiting, No chest pain, No diarrhea, No fever/chills, No shortness of breath Previous symptoms: no prior history, no recent treatment Allergies/Adverse Reactions: duloxetine [From Cymbalta] Allergy (Severe, Verified 09/15/23 11:08) ibuprofen [From Motrin] Allergy (Mild, Verified 09/15/23 11:08) antipsychotic Allergy (Uncoded 09/15/23 11:08) Home Medications: Pnv,Calcium 72/Iron/Folic Acid [ Vitamin Plus Low Iron] 1 tab PO DAILY 07/02/23 [History] Hx Tetanus, Diphtheria Vaccination/Date Given: Yes Hx Influenza Vaccination/Date Given: No Hx Pneumococcal Vaccination/Date Given: No Travel Risk - International Travel Have you traveled outside of the country in past 3 weeks: No - Coronavirus Screening Are you exhibiting any of the following symptoms?: No Close contact with a COVID-19 positive Pt in past 14-21 Days: No - Vaccine Status Have you recieved a Covid-19 vaccination: Yes 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 - Review of Systems Constitutional: No Symptoms Eyes: No Symptoms Ears, Nose, & Throat: No Symptoms Respiratory: No Symptoms Cardiac: No Symptoms Abdominal/Gastrointestinal: Abdominal Pain, Nausea, Vomiting, No Diarrhea, No Constipation Genitourinary Symptoms: Flank Pain (Bilateral) Musculoskeletal: No Symptoms Skin: No Symptoms Neurological: No Symptoms Psychological: No Symptoms Endocrine: No Symptoms Hematologic/Lymphatic: No Symptoms Immunological/Allergic: No Symptoms All Other Systems: Reviewed and Negative - Past Medical History Pertinent Past Medical History: Yes Neurological History: Migraines ENT History: No Pertinent History Cardiac History: No Pertinent History Respiratory History: No Pertinent History Endocrine Medical History: No Pertinent History Musculoskeletal History: No Pertinent History GI Medical History: No Pertinent History History: No Pertinent History Psycho-Social History: Anxiety, Bipolar, Depression Female Reproductive Disorders: No Pertinent History Other Medical History: borderline personality. sinus tachycardia - Past Surgical History Past Surgical History: Yes Neuro Surgical History: No Pertinent History Cardiac: No Pertinent History Respiratory: No Pertinent History Gastrointestinal: No Pertinent History Genitourinary: No Pertinent History Musculoskeletal: No Pertinent History Female Surgical History: No Pertinent History Other Surgical History: cyst removed, test for painful bladder syndrome that required anesthesia - Social History Smoking Status: Light tobacco smoker How long have you smoked: 3 Exposure to second hand smoke: Yes Drug Use: none Patient Lives Alone: No Significant Family History: no pertinent family hx - Female History Hx Now: Yes Gestational Age: 22 weeks - Nursing Vital Signs Nursing Vital Signs: Initial Vital Signs Temperature 98.2 F 09/15/23 11:06 Pulse Rate 98 H 09/15/23 11:06 Respiratory Rate 14 09/15/23 11:06 Blood Pressure 107/75 09/15/23 11:06 O2 Sat by Pulse Oximetry 97 09/15/23 11:06 Pain Scale Pain Intensity 4 - Physical Exam General Appearance: no apparent distress, alert, anxiety Eye Exam: PERRL/EOMI, eyes nml inspection Ears, Nose, Throat Exam: normal ENT inspection, moist mucous membranes Neck Exam: normal inspection, non-tender, supple, full range of motion Respiratory Exam: normal breath sounds, lungs clear, airway intact, No chest tenderness, No respiratory distress Cardiovascular Exam: regular rate/rhythm, normal heart sounds, normal peripheral pulses Gastrointestinal/Abdomen Exam: soft, normal bowel sounds, tenderness (Mild diffuse palpation), other ( heart tones at 152 bpm), No rebound Pelvic Exam: not done Rectal Exam: not done Back Exam: normal inspection, normal range of motion, No CVA tenderness, No vertebral tenderness Extremity Exam: normal inspection, normal range of motion, pelvis stable Neurologic Exam: alert, oriented x 3, cooperative, 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 tested, normal mood/affect, nml cerebellar function, nml station & gait, sensation nml Skin Exam: normal color, warm, dry Lymphatic Exam: No adenopathy SpO2 Interpretation: normal SpO2: 97 O2 Delivery: Room Air - Course Nursing assessment & vital signs reviewed: Yes Ordered Tests: Active Orders 24 hr Category Date Time Status UA W/RFX UR CULTURE Stat Lab 09/15/23 11:25 Completed Lab/Rad Data: Laboratory Results 09/15/23 09/15/23 Range/Units 11:35 11:25 Urine Color Dark Yellow A (Yellow) Urine Appearance Cloudy A (Clear) Urine pH 6.5 (4.6-8.0) Ur Specific [place] 1.015 (1.005-1.030) Urine Protein Negative (Negative) Urine Glucose (UA) Negative (Negative) mg/dL Urine Ketones Negative (Negative) Urine Blood Negative (Negative) Urine Nitrite Negative (Negative) Urine Bilirubin Negative (Negative) Urine Urobilinogen 0.2 (0.2) mg/dL Ur Leukocyte Esterase Negative (Negative) U Hyaline Cast (Auto) NONE SEEN (0-2) /LPF Urine Microscopic RBC 0-2 (0-5) /HPF Urine Microscopic WBC 3-5 (0-5) /HPF Ur Epithelial Cells Moderate A (None Seen) /HPF Urine Bacteria None Seen (None Seen) /HPF Urine Culture Reflexed NO (NO) Influenza Type A Ag NEGATIVE (NEGATIVE) Influenza Type B Ag NEGATIVE (NEGATIVE) RSV (PCR) NEGATIVE (NEGATIVE) SARS-CoV-2 (PCR) NEGATIVE (NEGATIVE) - Progress Progress: unchanged Progress Note: 09/15/23 11:49 This patient's medical issue here in the emergency department is of low complexity. Level complexity in the workup performed is based on review the patient's past medical history, review the patient's medication list, review of the patient's drug allergy list, history of present illness and physical findings on examination. The workup also is based on OB department requesting us to order and review urinalysis and viral swabs. They would like to know the status status before transferring her to the OB department/floor. Counseled pt/family regarding: lab results, diagnosis, need for follow-up Medical Desision Making - Diagnostic Testing Diagnostic test were ordered, analyzed, and reviewed by me: Yes - Risk of complications Minimal Risk: Minimal risk of morbidity - Departure Departure Disposition: Home Clinical Impression: Abdominal pain during in second trimester, Encounter for medical screening examination Condition: Stable Critical Care Time: No Referrals: SONYA VITAL [Primary Care Provider] - Follow up/PCP as directed Additional Instructions: Go to the OB department after being discharged from the emergency room.
[2023-09-15 11:54] VITALS: PULSE 100
[2023-09-15 12:15] LABS: ADD URINE CULTURE? NO (NO); Appearance Cloudy (Clear); Bacteria None Seen /HPF (None Seen); Bilirubin Negative (Negative); Blood Negative (Negative); Epithelial Cells Moderate /HPF (None Seen); Glucose, Urine Negative (Negative); Hyaline Casts NONE SEEN /LPF (0-2); Ketones Negative (Negative); Leukocyte Esterase Negative (Negative); Nitrite Negative (Negative); Ph 6.5 (4.6-8.0); Protein,Urine Dip Negative (Negative); RBC 0-2 /HPF (0-5); Specific Gravity 1.015 (1.005-1.030); Urobilinogen 0.2 mg/dL (0.2)
[2023-09-15 12:17] LABS: INFLUENZA A NEGATIVE (NEGATIVE); INFLUENZA B NEGATIVE (NEGATIVE); RESPIRATORY SYNCTIAL VIRUS NEGATIVE (NEGATIVE); SARS-CoV-2 Xpert Express NEGATIVE (NEGATIVE)
[2023-09-15 12:41] VITALS: BP 108/70
== END 2023-09-15 12:59 | disposition home or self-care (01) ==
LOC: ED 11:00
DX: Z34.82 Encounter for supervision of other normal pregnancy, second trimester (principal); R10.84 Generalized abdominal pain; R11.2 Nausea with vomiting, unspecified; R10.9 Unspecified abdominal pain; Z72.0 Tobacco use
CPT/HCPCS: 0241U; 81001; 99283

== ENCOUNTER 2023-09-15 13:20 | Observation (INO) | payer OTHER ==
[2023-09-15 13:55] VITALS: BP 102/55; PULSE 100; RESP 18; TEMP 98; O2SAT 98
--- NOTE | 2023-09-16 10:36 | PCM.SSS ---
History of Present Illness - Chief Complaint Chief Complaint: Rule out labor History of Present Illness: is a 22 year old female. 22 yo iup 22 wks who is being seen by dr stanton presented with cramping and back pain earlier in the day however feeling better now. Medications & Allergies Home Medications: Home Medication List Pnv,Calcium 72/Iron/Folic Acid [ Vitamin Plus Low Iron] 1 tab PO DAILY 07/02/23 [History Confirmed 09/15/23] Allergies/Adverse Reactions: Allergies Allergy/AdvReac Type Severity Reaction Status Date / Time duloxetine [From Cymbalta] Allergy Severe Verified 09/15/23 11:08 ibuprofen [From Motrin] Allergy Mild Verified 09/15/23 11:08 antipsychotic Allergy Uncoded 09/15/23 11:08 - Past Medical History Past Medical History: Yes Neurological History: Migraines ENT History: No Pertinent History Cardiac History: No Pertinent History Respiratory History: No Pertinent History Endocrine Medical History: No Pertinent History Musculoskelatal History: No Pertinent History GI Medical History: No Pertinent History History: No Pertinent History Pyscho-Social History: Anxiety, Bipolar, Depression Reproductive Disorders: No Pertinent History Comment: borderline personality. sinus tachycardia - Female History Expected Date of Delivery: 01/21/24 - Past Surgical History Past Surgical History: Yes Neuro Surgical History: No Pertinent History Cardiac History: No Pertinent History Respiratory Surgery: No Pertinent History GI Surgical History: No Pertinent History Genitourinary Surgical Hx: No Pertinent History Musculskeletal Surgical Hx: No Pertinent History Female Surgical History: No Pertinent History Other Surgical History: cyst removed, test for painful bladder syndrome that required anesthesia - Social History Smoking Status: Never smoker How long have you smoked: 3 Exposure to second hand smoke: Yes Alcohol: None Drug Use: none Significant Family History: no pertinent family hx - Physical Exam Vital Signs: Vital Signs - 24 hr Temp Pulse Resp BP Pulse Ox 09/15/23 13:41 98.0 F 100 H 18 102/55 98 Pelvic Exam: other (closed per nurse exam) Hospital Summary - Vitals & Intake/Output Vital Signs: Vital Signs Temperature 98.0 F 09/15/23 13:41 Pulse Rate 100 H 09/15/23 13:41 Respiratory Rate 18 09/15/23 13:41 Blood Pressure 102/55 09/15/23 13:41 O2 Sat by Pulse Oximetry 98 09/15/23 13:41 Intake & Output: Intake & Output 09/13/23 09/14/23 09/15/23 09/16/23 11:59 11:59 11:59 11:59 Weight 44.906 kg - Discharge Disposition: Home, Self-Care Condition: Stable Prescriptions: No Action Pnv,Calcium 72/Iron/Folic Acid [ Vitamin Plus Low Iron] 1 tab PO DAILY Follow up with: SONYA VITAL [Primary Care Provider] - Forms: OB Outpatient Discharge Inst.
== END 2023-09-15 16:10 | disposition home or self-care (01) ==
LOC: MED SURG 13:20
PROVIDERS: ADMIT Obstetrics & Gynecology; ATTEND Obstetrics & Gynecology
DX: Z34.02 Encounter for supervision of normal first pregnancy, second trimester (principal); Z3A.21 21 weeks gestation of pregnancy
CPT/HCPCS: G0378; G0379